=== PATIENT | male | born 1950 | race Caucasian/White ===

== ENCOUNTER → 2016-12-04 | Outpatient (CLI) | payer MEDICARE ==
[2016-12-04 10:58] LABS: Basophils # (A) 0.1 k/uL (0-0.2); Basophils % (A) 1 %; CH 31.6; CHCM 34.6; Eosinophils # (A) 0.6 k/uL (0-0.7); Eosinophils % (A) 8 %; HCT 48.2 % (39.0-53.0); HGB 16.1 gm/dL (13.0-17.5); Luc # (Auto) 0.17; Luc % (Auto) 2; Lymphocytes # (A) 1.4 k/uL (1.0-4.8); Lymphocytes % (A) 20 %; MCH 30.6 pg (25.0-35.0); MCHC 33.4 g/dL (31.0-37.0); MCV 91.7 fL (80.0-100.0); Mean Platelet Volume 7.8; Monocytes # (A) 0.6 k/uL (0-1.0); Monocytes % (A) 8 %; Neutrophils # (A) 4.4 k/uL (1.3-7.7); Neutrophils % (A) 62 %; RBC 5.25 m/uL (4.30-5.90); RDW 12.2 % (11.5-15.5); WBC 7.2 k/uL (3.8-10.6); WBC (Perox) 7.15
[2016-12-04 11:15] LABS: Hemoglobin A1C 5.4 % (4.2-6.1)
[2016-12-04 12:34] LABS: ALT 37 U/L (21-72); AST 20 U/L (17-59); Alkaline Phosphatase 67 U/L (38-126); Anion Gap 8 mmol/L; Blood Urea Nitrogen 12 mg/dL (9-20); Calcium 9.6 mg/dL (8.4-10.2); Carbon Dioxide 30 mmol/L (22-30); Chloride 103 mmol/L (98-107); Cholesterol 183 mg/dL (<200); Creatine Kinase 41 U/L (55-170); Glucose 110 mg/dL (74-99); HDL Cholesterol 44 mg/dL (40-60); Iron 97 ug/dL (49-181); Non-African American GFR(MDRD) >60 (>60 ml/min/1.73 sqM); Potassium 4.9 mmol/L (3.5-5.1); Sodium 141 mmol/L (137-145); Total Bilirubin 0.9 mg/dL (0.2-1.3); Total Protein 6.9 g/dL (6.3-8.2); Triglycerides 241 mg/dL (<150)
[2016-12-04 12:47] LABS: % Iron Saturation 29.8 % (20-50); Total Iron Binding Capacity 325 ug/dL (261-462)
== END | disposition home or self-care (01) ==
LOC: LABWHC1 10:19
PROVIDERS: ATTEND Family Medicine
DX: I10 Essential (primary) hypertension (principal); G47.62 Sleep related leg cramps; R73.02 Impaired glucose tolerance (oral); E78.5 Hyperlipidemia, unspecified
CPT/HCPCS: 36415; 80053; 80061; 82550; 83036; 83540; 83550; 83735; 84443; 85025

== ENCOUNTER → 2016-12-20 | Outpatient (CLI) | payer MEDICARE ==
--- NOTE | 2016-12-25 10:23 | P.ARTDOP ---
Arterial Doppler LOWER EXTREMITY ARTERIAL DOPPLER: DATE OF SERVICE: 12/20/2016 Reason for study: Leg spasm and pain. Doppler waveforms: Multiphasic bilaterally throughout. Pulse volume recording: Normal configuration. Pressure gradients: None. Ankle-brachial indices: Greater than 1 bilaterally. Toe pressures: [] on the right, [] on the left Impression: Normal basic study.
== END | disposition home or self-care (01) ==
LOC: RADUSWWP 09:33
PROVIDERS: ATTEND Family Medicine
DX: I73.9 Peripheral vascular disease, unspecified (principal)
CPT/HCPCS: 93923

== ENCOUNTER → 2017-05-12 | Outpatient (CLI) | payer MEDICARE ==
[2017-05-12 11:19] LABS: Basophils # (A) 0.1 k/uL (0-0.2); Basophils % (A) 1 %; CHCM 34.4; Eosinophils # (A) 0.6 k/uL (0-0.7); Eosinophils % (A) 7 %; HCT 47.6 % (39.0-53.0); HDW 2.52; HGB 16.2 gm/dL (13.0-17.5); Luc # (Auto) 0.25; Luc % (Auto) 3; Lymphocytes # (A) 1.2 k/uL (1.0-4.8); Lymphocytes % (A) 14 %; MCH 30.8 pg (25.0-35.0); MCV 90.6 fL (80.0-100.0); Mean Platelet Volume 7.6; Monocytes # (A) 0.6 k/uL (0-1.0); Monocytes % (A) 7 %; Neutrophils # (A) 6.2 k/uL (1.3-7.7); Neutrophils % (A) 70 %; RBC 5.26 m/uL (4.30-5.90); RDW 13.2 % (11.5-15.5); WBC (Perox) 8.93
[2017-05-12 12:02] LABS: ALT 45 U/L (21-72); AST 23 U/L (17-59); Alkaline Phosphatase 90 U/L (38-126); Anion Gap 10 mmol/L; Blood Urea Nitrogen 15 mg/dL (9-20); Calcium 9.8 mg/dL (8.4-10.2); Carbon Dioxide 26 mmol/L (22-30); Chloride 104 mmol/L (98-107); Cholesterol 121 mg/dL (<200); Creatine Kinase 43 U/L (55-170); Glucose 106 mg/dL (74-99); HDL Cholesterol 55 mg/dL (40-60); Magnesium 1.8 mg/dL (1.6-2.3); Non-African American GFR(MDRD) >60 (>60 ml/min/1.73 sqM); Sodium 140 mmol/L (137-145); Total Protein 6.8 g/dL (6.3-8.2); Triglycerides 118 mg/dL (<150)
[2017-05-12 12:25] LABS: Prostate Specific Antigen 1.29 ng/mL (0.00-4.00)
[2017-05-12 12:43] LABS: Vitamin B12 657 pg/mL
[2017-05-12 13:28] LABS: Hemoglobin A1C 5.5 % (4.2-6.1)
== END | disposition home or self-care (01) ==
LOC: LABWHC1 10:45
PROVIDERS: ATTEND Family Medicine
DX: E78.5 Hyperlipidemia, unspecified (principal); N40.0 Benign prostatic hyperplasia without lower urinary tract symptoms; I10 Essential (primary) hypertension; I25.10 Atherosclerotic heart disease of native coronary artery without angina pectoris; R73.02 Impaired glucose tolerance (oral)
CPT/HCPCS: 36415; 80053; 80061; 82550; 82607; 83036; 83735; 84153; 84443; 85025

== ENCOUNTER → 2018-04-10 | Outpatient (CLI) | payer MEDICARE ==
[2018-04-10 10:59] LABS: Basophils % (A) 0 %; Eosinophils # (A) 0.6 k/uL (0-0.7); Eosinophils % (A) 8 %; HCT 46.8 % (39.0-53.0); HGB 15.6 gm/dL (13.0-17.5); Lymphocytes # (A) 1.4 k/uL (1.0-4.8); Lymphocytes % (A) 18 %; MCHC 33.3 g/dL (31.0-37.0); MCV 89.9 fL (80.0-100.0); Mean Platelet Volume 6.8; Monocytes # (A) 0.6 k/uL (0-1.0); Monocytes % (A) 7 %; Neutrophils % (A) 64 %; Platelet Count 312 k/uL (150-450); RBC 5.21 m/uL (4.30-5.90); RDW 12.9 % (11.5-15.5); WBC 7.8 k/uL (3.8-10.6)
[2018-04-10 11:14] LABS: ALT 44 U/L (21-72); AST 25 U/L (17-59); Albumin 4.3 g/dL (3.5-5.0); Alkaline Phosphatase 75 U/L (38-126); Anion Gap 9 mmol/L; Blood Urea Nitrogen 20 mg/dL (9-20); Calcium 9.6 mg/dL (8.4-10.2); Carbon Dioxide 29 mmol/L (22-30); Chloride 101 mmol/L (98-107); Cholesterol 144 mg/dL (<200); Creatine Kinase 41 U/L (55-170); Glucose 106 mg/dL (74-99); HDL Cholesterol 57 mg/dL (40-60); LDL Cholesterol,Calculated 52 mg/dL (0-99); Potassium 4.9 mmol/L (3.5-5.1); Sodium 139 mmol/L (137-145); Total Bilirubin 0.7 mg/dL (0.2-1.3); Total Protein 6.5 g/dL (6.3-8.2); Triglycerides 175 mg/dL (<150); Uric Acid 8.4 mg/dL (3.5-8.5)
[2018-04-10 19:30] LABS: Hemoglobin A1C 5.4 % (4.0-6.0)
== END | disposition home or self-care (01) ==
LOC: LABWHC1 10:37
PROVIDERS: ATTEND Family Medicine
DX: E78.5 Hyperlipidemia, unspecified (principal); G89.4 Chronic pain syndrome; I10 Essential (primary) hypertension
CPT/HCPCS: 36415; 80053; 80061; 82550; 82607; 83036; 84443; 84550; 85025

== ENCOUNTER → 2018-07-16 | Outpatient (CLI) | payer MEDICARE ==
[2018-07-16 11:29] LABS: Basophils % (A) 1 %; Eosinophils # (A) 0.6 k/uL (0-0.7); Eosinophils % (A) 9 %; HGB 15.5 gm/dL (13.0-17.5); Lymphocytes # (A) 1.1 k/uL (1.0-4.8); Lymphocytes % (A) 18 %; MCH 29.5 pg (25.0-35.0); MCHC 31.7 g/dL (31.0-37.0); MCV 93.2 fL (80.0-100.0); Mean Platelet Volume 6.6; Monocytes # (A) 0.5 k/uL (0-1.0); Monocytes % (A) 8 %; Neutrophils # (A) 3.9 k/uL (1.3-7.7); Neutrophils % (A) 62 %; Platelet Count 316 k/uL (150-450); RBC 5.26 m/uL (4.30-5.90); RDW 12.6 % (11.5-15.5); WBC 6.3 k/uL (3.8-10.6)
[2018-07-16 11:58] LABS: ALT 34 U/L (21-72); AST 25 U/L (17-59); Albumin 4.2 g/dL (3.5-5.0); Alkaline Phosphatase 71 U/L (38-126); Anion Gap 9 mmol/L; Blood Urea Nitrogen 20 mg/dL (9-20); Calcium 9.8 mg/dL (8.4-10.2); Carbon Dioxide 24 mmol/L (22-30); Chloride 105 mmol/L (98-107); Cholesterol 135 mg/dL (<200); Glucose 112 mg/dL (74-99); HDL Cholesterol 54 mg/dL (40-60); LDL Cholesterol,Calculated 55 mg/dL (0-99); Potassium 4.9 mmol/L (3.5-5.1); Sodium 138 mmol/L (137-145); Total Bilirubin 0.8 mg/dL (0.2-1.3); Total Protein 6.8 g/dL (6.3-8.2); Triglycerides 132 mg/dL (<150)
[2018-07-16 20:06] LABS: Hemoglobin A1C 5.3 % (4.0-6.0)
== END | disposition home or self-care (01) ==
LOC: LABWHC1 10:19
PROVIDERS: ATTEND Family Medicine
DX: I10 Essential (primary) hypertension (principal); R73.01 Impaired fasting glucose; E78.5 Hyperlipidemia, unspecified
CPT/HCPCS: 36415; 80053; 80061; 83036; 84153; 84443; 85025

== ENCOUNTER → 2019-01-21 | Outpatient (CLI) | payer MEDICARE ==
[2019-01-21 12:11] LABS: Basophils # (A) 0.1 k/uL (0-0.2); Basophils % (A) 1 %; Eosinophils # (A) 0.5 k/uL (0-0.7); Eosinophils % (A) 10 %; HCT 45.6 % (39.0-53.0); HGB 14.6 gm/dL (13.0-17.5); Lymphocytes # (A) 0.8 k/uL (1.0-4.8); Lymphocytes % (A) 16 %; MCH 29.5 pg (25.0-35.0); MCHC 32.1 g/dL (31.0-37.0); MCV 91.8 fL (80.0-100.0); Mean Platelet Volume 7.4; Monocytes # (A) 0.4 k/uL (0-1.0); Monocytes % (A) 9 %; Neutrophils # (A) 3.1 k/uL (1.3-7.7); Neutrophils % (A) 62 %; Platelet Count 319 k/uL (150-450); RBC 4.97 m/uL (4.30-5.90); RDW 13.8 % (11.5-15.5); WBC 5.1 k/uL (3.8-10.6)
[2019-01-21 19:46] LABS: Hemoglobin A1C 5.5 % (4.0-6.0)
[2019-01-21 20:33] LABS: Albumin 4.4 g/dL (3.80-4.90); Albumin/Globulin Ratio 3.14 (1.60-3.17); Anion Gap 7.3 mmol/L (4.00-12.00); Calcium 9.4 mg/dL (8.7-10.3); Carbon Dioxide 26.7 mmol/L (21.6-31.8); Globulin 1.4 g/dL (1.6-3.3); LDL Cholesterol,Calculated 52.4 mg/dL (0.0-131.0); Potassium 5.1 mmol/L (3.5-5.5); Total Bilirubin 0.7 mg/dL (0.2-1.2); Total Protein 5.8 g/dL (6.2-8.2); Uric Acid 6.5 mg/dL (3.7-8.7); VLDL Calculation 13.6 mg/dL (5.00-40.00)
[2019-01-21 20:43] LABS: T4, Free (Free Thyroxine) 1.2 ng/dL (0.80-1.80)
== END | disposition home or self-care (01) ==
LOC: LABWHC1 10:47
PROVIDERS: ATTEND Family Medicine
DX: G89.4 Chronic pain syndrome (principal); E78.5 Hyperlipidemia, unspecified; I10 Essential (primary) hypertension
CPT/HCPCS: 36415; 80053; 80061; 83036; 84439; 84443; 84550; 85025

== ENCOUNTER → 2019-07-07 | Outpatient (CLI) | payer MEDICARE ==
[2019-07-07 15:22] LABS: Basophils # (A) 0.1 k/uL (0-0.2); Basophils % (A) 1 %; Eosinophils # (A) 0.6 k/uL (0-0.7); Eosinophils % (A) 7 %; HCT 47.7 % (39.0-53.0); HGB 15.6 gm/dL (13.0-17.5); Lymphocytes # (A) 1.1 k/uL (1.0-4.8); Lymphocytes % (A) 15 %; MCH 30.2 pg (25.0-35.0); MCHC 32.7 g/dL (31.0-37.0); MCV 92.5 fL (80.0-100.0); Mean Platelet Volume 7.3; Monocytes # (A) 0.6 k/uL (0-1.0); Monocytes % (A) 8 %; Neutrophils # (A) 5.2 k/uL (1.3-7.7); Neutrophils % (A) 68 %; Platelet Count 303 k/uL (150-450); RBC 5.15 m/uL (4.30-5.90); RDW 15.7 % (11.5-15.5); WBC 7.7 k/uL (3.8-10.6)
[2019-07-07 18:46] LABS: Vitamin D 25 Hydroxy 29.5 ng/mL (30.0-100.0)
[2019-07-07 21:43] LABS: Hemoglobin A1C 5.5 % (4.0-6.0)
[2019-07-07 22:28] LABS: African American GFR (CKD) 99.9 (60.0-200.0); Albumin 4.4 g/dL (3.80-4.90); Albumin/Globulin Ratio 2.59 (1.60-3.17); Anion Gap 13.9 mmol/L (4.00-12.00); BUN/Creat Ratio 25.56 Ratio (12.00-20.00); Calcium 9.4 mg/dL (8.7-10.3); Carbon Dioxide 22.1 mmol/L (21.6-31.8); Chol/HDL Ratio 2.85; Globulin 1.7 g/dL (1.6-3.3); LDL Cholesterol,Calculated 57.2 mg/dL (0.0-131.0); Potassium 4.9 mmol/L (3.5-5.5); Total Bilirubin 0.7 mg/dL (0.3-1.2); Total Protein 6.1 g/dL (6.2-8.2); VLDL Calculation 44.8 mg/dL (5.00-40.00)
== END | disposition home or self-care (01) ==
LOC: LABWHC1 13:41
PROVIDERS: ATTEND Nurse Practitioner Adult Health
DX: I10 Essential (primary) hypertension (principal); E78.5 Hyperlipidemia, unspecified; R73.01 Impaired fasting glucose; N40.0 Benign prostatic hyperplasia without lower urinary tract symptoms; M54.31 Sciatica, right side; R00.0 Tachycardia, unspecified
CPT/HCPCS: 36415; 80053; 80061; 82306; 82550; 82607; 83036; 84153; 84443; 84481; 85025

== ENCOUNTER 2019-08-05 19:37 | Observation (INO) | payer MEDICARE ==
[2019-08-05] MEDS ORDERED: ASPIRIN 81 MG PO STA (20:59)
--- NOTE | 2019-08-05 21:00 | ED ---
General Adult HPI - General Chief complaint: Chest Pain Stated complaint: Chest tightness,SOB Time Seen by Provider: 08/05/19 20:16 Source: patient Mode of arrival: ambulatory Limitations: no limitations - History of Present Illness Initial comments: Dictation was produced using [employer] dictation software. please excuse any grammatical, word or spelling errors. Chief Complaint: 69-year-old male past medical history coronary artery disease presents with chest pain. History of Present Illness: Patient is a 69-year-old male who has past medical history of coronary artery disease. Patient states he had crushing substernal chest pressure that radiate to his right shoulder. no diaphoresis. Did have some nausea. Patient is has history of coronary artery disease. He had a stent that was performed several years ago. Patient's last cardiac stress test was 2 years ago. Patient states that since being in the emergency department his symptoms have abated. The ROS documented in this emergency department record has been reviewed and confirmed by me. Those systems with pertinent positive or negative responses have been documented in the HPI. All other systems are other negative and/or noncontributory. PHYSICAL EXAM: General Impression: Alert and oriented x3, not in acute distress HEENT: Normocephalic atraumatic, extra-ocular movements intact, pupils equal and reactive to light bilaterally, mucous membranes moist. Cardiovascular: Heart regular rate and rhythm, S1&S2 audible, no murmurs, rubs or gallops Chest: Lungs clear to auscultation bilaterally, no rhonchi, no wheeze, no rales Abdomen: Bowel sounds present, abdomen soft, non-tender, non-distended, no organomegaly Musculoskeletal: Pulses present and equal in all extremities, no peripheral edema Motor: no focal deficits noted Neurological: CN II-XII grossly intact, no focal motor or sensory deficits noted Skin: Intact with no visualized rashes Psych: Normal affect and mood ED course: 69y Old male presents with atypical chest pain with typical features. Patient has multiple risk factors including known history of coronary artery disease number hypertension and dyslipidemia. Signs upon arrival shows heart rate of 102, rest of vital signs within acceptable limits. Patient denies any symptoms at this time. Laboratory evaluation obtained. CBC, coag panel, metabolic panel is unremarkable. Cardiac enzymes negative. Chest x-ray is nonacute. Martinez will be admitted for atypical chest pain typical features. He does have multiple risk factors. Patient will have surgery troponins ordered and cardiac consultation. Patient understandable agreeable with disposition. Discussed patient case with Dr. Carranza. EKG interpretation: Ventricular rate he 6, normal sinus rhythm, TX interval 162, care is 80, QTc 424. No TX prolongation, no QTC prolongation, no ST or T-wave changes noted. Overall, this EKG is unremarkable - Related Data Home Medications Medication Instructions Recorded Confirmed Aspirin EC [Ecotrin Low Dose] 162 mg PO DAILY 08/05/19 08/05/19 Atorvastatin [Lipitor] 10 mg PO DAILY 08/05/19 08/05/19 Cholecalciferol [Vitamin D3 (25 1,000 unit PO DAILY 08/05/19 08/05/19 Mcg = 1000 Iu)] Cyanocobalamin (Vitamin B-12) 1,000 mcg PO DAILY 08/05/19 08/05/19 [Vitamin B-12] DULoxetine HCL [Cymbalta] 60 mg PO BID 08/05/19 08/05/19 Famotidine [Pepcid] 20 mg PO BID PRN 08/05/19 08/05/19 HYDROcodone/APAP 7.5-325MG [[place] 1 tab PO TID PRN 08/05/19 08/05/19 7.5-325] Lisinopril-Hctz 20-12.5 mg 1 tab PO DAILY 08/05/19 08/05/19 [Zestoretic 20-12.5] Omeprazole 20 mg PO DAILY 08/05/19 08/05/19 Tamsulosin HCl [Flomax] 0.8 mg PO DAILY 08/05/19 08/05/19 Allergies Allergy/AdvReac Type Severity Reaction Status Date / Time aspirin Allergy Nausea Verified 08/05/19 20:21 WITH UNCOATED TABLETS ONLY Review of Systems ROS Statement: Those systems with pertinent positive or pertinent negative responses have been documented in the HPI. ROS Other: All systems not noted in ROS Statement are negative. Past Medical History Past Medical History: GERD/Reflux, Hyperlipidemia, Hypertension, Osteoarthritis (OA) Additional Past Medical History / Comment(s): "inverted T wave", arthritis, fell at work 09/02/14, hiatal hernia History of Any Multi-Drug Resistant Organisms: None Reported Past Surgical History: Appendectomy, Cholecystectomy, Heart Catheterization With Stent, Orthopedic Surgery Additional Past Surgical History / Comment(s): ORIF jame ankles, "aneurysm behind knee" Past Anesthesia/Blood Transfusion Reactions: No Reported Reaction Date of Last Stent Placement:: 2008 Past Psychological History: No Psychological Hx Reported Smoking Status: Former smoker Past Alcohol Use History: Occasional Past Drug Use History: None Reported - Past Family History Father Family Medical History: Cancer Sister(s) Family Medical History: Deep Vein Thrombosis (DVT) General Exam Limitations: no limitations Course Vital Signs 08/05/19 08/05/19 19:43 20:33 Temperature 97.7 F Pulse Rate 102 H 89 Respiratory 18 18 Rate Blood Pressure 121/77 126/75 O2 Sat by Pulse 98 98 Oximetry Medical Decision Making - Lab Data Result diagrams: 08/05/19 20:05 08/05/19 20:05 Lab Results 08/05/19 08/05/19 08/05/19 Range/Units 20:05 20:05 20:05 WBC 9.3 (3.8-10.6) k/uL RBC 4.68 (4.30-5.90) m/uL Hgb 14.4 (13.0-17.5) gm/dL Hct 42.6 (39.0-53.0) % MCV 91.2 (80.0-100.0) fL MCH 30.7 (25.0-35.0) pg MCHC 33.7 (31.0-37.0) g/dL RDW 11.9 (11.5-15.5) % Plt Count 287 (150-450) k/uL Neutrophils % 69 % Lymphocytes % 15 % Monocytes % 8 % Eosinophils % 5 % Basophils % 1 % Neutrophils # 6.4 (1.3-7.7) k/uL Lymphocytes # 1.4 (1.0-4.8) k/uL Monocytes # 0.8 (0-1.0) k/uL Eosinophils # 0.5 (0-0.7) k/uL Basophils # 0.1 (0-0.2) k/uL PT 9.9 (9.0-12.0) sec INR 0.9 (<1.2) APTT 23.3 (22.0-30.0) sec Sodium 135 L (137-145) mmol/L Potassium 4.3 (3.5-5.1) mmol/L Chloride 97 L (98-107) mmol/L Carbon Dioxide 27 (22-30) mmol/L Anion Gap 11 mmol/L BUN 21 H (9-20) mg/dL Creatinine 1.20 (0.66-1.25) mg/dL Est GFR (CKD-EPI)AfAm 71 (>60 ml/min/1.73 sqM) Est GFR (CKD-EPI)NonAf 61 (>60 ml/min/1.73 sqM) Glucose 98 (74-99) mg/dL Calcium 9.6 (8.4-10.2) mg/dL Magnesium 1.8 (1.6-2.3) mg/dL Total Bilirubin 0.5 (0.2-1.3) mg/dL AST 36 (17-59) U/L ALT 52 (21-72) U/L Alkaline Phosphatase 79 (38-126) U/L Troponin I (0.000-0.034) ng/mL Total Protein 6.7 (6.3-8.2) g/dL Albumin 4.2 (3.5-5.0) g/dL 08/05/19 Range/Units 20:05 WBC (3.8-10.6) k/uL RBC (4.30-5.90) m/uL Hgb (13.0-17.5) gm/dL Hct (39.0-53.0) % MCV (80.0-100.0) fL MCH (25.0-35.0) pg MCHC (31.0-37.0) g/dL RDW (11.5-15.5) % Plt Count (150-450) k/uL Neutrophils % % Lymphocytes % % Monocytes % % Eosinophils % % Basophils % % Neutrophils # (1.3-7.7) k/uL Lymphocytes # (1.0-4.8) k/uL Monocytes # (0-1.0) k/uL Eosinophils # (0-0.7) k/uL Basophils # (0-0.2) k/uL PT (9.0-12.0) sec INR (<1.2) APTT (22.0-30.0) sec Sodium (137-145) mmol/L Potassium (3.5-5.1) mmol/L Chloride (98-107) mmol/L Carbon Dioxide (22-30) mmol/L Anion Gap mmol/L BUN (9-20) mg/dL Creatinine (0.66-1.25) mg/dL Est GFR (CKD-EPI)AfAm (>60 ml/min/1.73 sqM) Est GFR (CKD-EPI)NonAf (>60 ml/min/1.73 sqM) Glucose (74-99) mg/dL Calcium (8.4-10.2) mg/dL Magnesium (1.6-2.3) mg/dL Total Bilirubin (0.2-1.3) mg/dL AST (17-59) U/L ALT (21-72) U/L Alkaline Phosphatase (38-126) U/L Troponin I <0.012 (0.000-0.034) ng/mL Total Protein (6.3-8.2) g/dL Albumin (3.5-5.0) g/dL Disposition Clinical Impression: Chest pain Disposition: ADMITTED IP TO THIS [facility] Condition: Fair Referrals: Ema Watkins MD [Primary Care Provider] - 1-2 days Decision Time: 22:52
--- NOTE | 2019-08-05 21:11 | XR ---
EXAMINATION TYPE: XR chest 2V DATE OF EXAM: 08/05/2019 COMPARISON: 08/19/2010 HISTORY: Chest pain TECHNIQUE: Frontal and lateral views of the chest are obtained. FINDINGS: Heart and mediastinum are normal. Lungs are clear. Diaphragm is normal. Bony thorax appear s normal. IMPRESSION: Normal chest. No change.
[2019-08-05 22:23] LABS: Basophils # (A) 0.1 k/uL (0-0.2); Basophils % (A) 1 %; Eosinophils # (A) 0.5 k/uL (0-0.7); Eosinophils % (A) 5 %; HCT 42.6 % (39.0-53.0); HGB 14.4 gm/dL (13.0-17.5); Lymphocytes # (A) 1.4 k/uL (1.0-4.8); Lymphocytes % (A) 15 %; MCH 30.7 pg (25.0-35.0); MCHC 33.7 g/dL (31.0-37.0); MCV 91.2 fL (80.0-100.0); Mean Platelet Volume 6.8; Monocytes # (A) 0.8 k/uL (0-1.0); Monocytes % (A) 8 %; Neutrophils # (A) 6.4 k/uL (1.3-7.7); Neutrophils % (A) 69 %; Platelet Count 287 k/uL (150-450); RBC 4.68 m/uL (4.30-5.90); RDW 11.9 % (11.5-15.5); WBC 9.3 k/uL (3.8-10.6)
[2019-08-05 22:30] LABS: Albumin 4.2 g/dL (3.5-5.0); Calcium 9.6 mg/dL (8.4-10.2); Magnesium 1.8 mg/dL (1.6-2.3); Potassium 4.3 mmol/L (3.5-5.1); Total Bilirubin 0.5 mg/dL (0.2-1.3); Total Protein 6.7 g/dL (6.3-8.2)
[2019-08-05 22:40] LABS: INR 0.9 (<1.2); Partial Thromboplastin Time 23.3 sec (22.0-30.0); Prothrombin Time 9.9 sec (9.0-12.0)
[2019-08-05] MEDS ORDERED: NITROGLYCERIN SL TABS 0.4 MG TAB SUBLINGUAL PRN (22:50)
[2019-08-05] MEDS ORDERED: HYDROcodone/APAP 5-325MG 1 EACH TAB PO STA (22:56)
[2019-08-05] MEDS: HYDROcodone/APAP 7.5-325MG 1 EACH TAB PO PRN (23:42)
[2019-08-06 04:16] LABS: Cholesterol 124 mg/dL (<200); HDL Cholesterol 39 mg/dL (40-60); LDL Cholesterol,Calculated 17 mg/dL (0-99); Triglycerides 340 mg/dL (<150)
[2019-08-06] MEDS ORDERED: ALPRAZolam 0.5 MG TAB PO PRN (08:32)
[2019-08-06] MEDS ORDERED: ALPRAZolam 0.25 MG TAB PO PRN (08:32)
[2019-08-06] MEDS ORDERED: ASPIRIN 325 MG TAB PO STA (08:32)
[2019-08-06] MEDS ORDERED: SODIUM CHLORIDE 0.9% 1,000 ML in EMPTY BAG 1 BAG IV ONE (08:32)
[2019-08-06] MEDS ORDERED: ATORVASTATIN 20 MG TAB PO SCH (09:00)
[2019-08-06] MEDS ORDERED: ASPIRIN 81 MG PO SCH (09:00)
[2019-08-06] MEDS ORDERED: ASPIRIN 325 MG TAB PO SCH (09:00)
[2019-08-06] MEDS: LISINOPRIL-HCTZ 20-12.5 MG 1 EACH TAB PO SCH (09:14)
[2019-08-06] MEDS ORDERED: LIDOCAINE 1% INJ 10MG/ML (20 ML MDV) ONE (09:41)
--- NOTE | 2019-08-06 09:44 | P.CRDCN ---
History of Present Illness History of present illness: This is a pleasant 69-year-old male past medical history significant for coronary artery disease in the setting of an acute myocardial infarction status post placement to the circumflex artery in 2009, dyslipidemia, hypertension, BPH, former nicotine dependence and alcohol use. He follows in the office with Dr. Cast. We've been asked to see him in consultation secondary to chest discomfort. He states yesterday while riding his motorcycle he felt a very heavy squeezing pain in the midsternal region with radiation to the right shoulder, base of the right neck and up into the right side of his head. This was associated with an acute onset of diaphoresis and shortness of breath. Symptoms persisted intermittently for the next 4 hours and seemed to be worsened by activity or exertion. He denies palpitations, nausea, vomiting or dizziness. He did suffer a trip and fall last week on Friday hitting his right shoulder and forehead on the pavement. He has a small abrasion to the right forehead. However the discomfort in the right shoulder and chest is not reproducible. He is seen and examined resting comfortably in bed in no acute distress. He denies any further symptoms of chest discomfort since arriving at the hospital. EKG reveals sinus rhythm with no acute ST or T wave abnormalities noted. Chest x-ray is negative for an acute cardiopulmonary process. Laboratory data reviewed, CBC unremarkable, d-dimer 0.27, sodium 135, potassium 4.3, creatinine 1.2 with a GFR of 61, magnesium 1.8, cardiac enzymes negative 2, LDL 17. Current cardiac medications include atorvastatin 10 mg daily, zestoretic 20/12.5 mg daily, aspirin 162 mg daily. Most recent echocardiogram obtained reveals preserved LV systolic function with EF 55%. At the time of my exam: CONSTITUTIONAL: Denies fever. Denies chills. EYES: Denies blurred vision. Denies vision changes. Denies eye pain. EARS, NOSE, MOUTH & THROAT: Denies headache. Denies sore throat. Denies ear pain. CARDIOVASCULAR: Denies chest pain. Denies shortness of breath. Denies orthopnea. Denies PND. Denies palpitations. RESPIRATORY: Denies cough. GASTROINTESTINAL: Denies abdominal pain. Denies diarrhea. Denies constipation. Denies nausea. Denies vomiting. MUSCULOSKELETAL: Denies myalgias. INTEGUMENTARY: Denies pruitis. Denies rash. NEUROLOGIC: Denies numbness. Denies tingling. Denies weakness. PSYCHIATRIC: Denies anxiety. Denies depression. ENDOCRINE: Denies fatigue. Denies weight change. Denies polydipsia. Denies polyurina. GENITOURINARY: Denies burning, hematuria or urgency with micturation. HEMATOLOGIC: Denies history of anemia. Denies bleeding. Blood pressure 117/69 heart rate 78 afebrile maintaining oxygen saturation on room air GENERAL: This is a 69-year-old male in no apparent distress at the time of my examination. HEENT: Head is atraumatic, normocephalic. Pupils are equal, round. Sclerae anicteric. Conjunctivae are clear. Mucous membranes of the mouth are moist. Neck is supple. There is no jugular venous distention. No carotid bruit is heard. LUNGS: Clear to auscultation no wheezes, rales or rhonchi. No chest wall tenderness is noted on palpation or with deep breathing. HEART: Regular rate and rhythm without murmurs, rubs or gallops. S1 and S2 heard. ABDOMEN: Soft, nontender. Bowel sounds are heard. No organomegaly noted. EXTREMITIES: No evidence of peripheral edema and no calf tenderness noted. VASCULAR: Radial and dorsalis pedis pulses palpated, no evidence of clubbing. NEUROLOGIC: Patient is awake, alert and oriented x3. ASSESSMENT Chest pain suggestive of unstable angina History of coronary artery disease status post placement to the circumflex 2010 History of myocardial infarction Hypertension Dyslipidemia Former nicotine dependence Regular alcohol use PLAN Patient had a recent echocardiogram in the office revealing preserved LV systolic function, we will repeat a limited echo to assess for wall motion abnormalities. Recommend proceeding with cardiac catheterization to assess for progression of coronary artery disease.I have discussed the risks, benefits and alternative therapies for the above-mentioned procedure and for both sedation/analgesia as well as necessary blood product administration, if indicated, as they pertain to this patient. The patient has indicated understanding and acceptance of the risks and procedures discussed. Questions have been answered appropriately and he is agreeable to move forward with the above-stated procedure. Decrease aspirin to 81 mg daily. D-dimer requested and is unremarkable. Further recommendations to follow based upon clinical course. Thank you kindly for this consultation. Nurse Practitioner note has been reviewed, I agree with a documented findings and plan of care. Patient was seen and examined. Past Medical History Past Medical History: GERD/Reflux, Hyperlipidemia, Hypertension, Osteoarthritis (OA), Prostate Disorder Additional Past Medical History / Comment(s): arthritis, hiatal hernia, BPH History of Any Multi-Drug Resistant Organisms: None Reported Past Surgical History: Appendectomy, Cholecystectomy, Heart Catheterization With Stent, Orthopedic Surgery Additional Past Surgical History / Comment(s): ORIF jame ankles, "aneurysm behind knee" Past Anesthesia/Blood Transfusion Reactions: No Reported Reaction Date of Last Stent Placement:: 2008 Past Psychological History: No Psychological Hx Reported Smoking Status: Former smoker Past Alcohol Use History: Occasional Past Drug Use History: None Reported - Past Family History Father Family Medical History: Cancer Sister(s) Family Medical History: Deep Vein Thrombosis (DVT) Medications and Allergies Home Medications Medication Instructions Recorded Confirmed Type Aspirin EC [Ecotrin Low Dose] 162 mg PO DAILY 08/05/19 08/05/19 History Atorvastatin [Lipitor] 10 mg PO DAILY 08/05/19 08/05/19 History Cholecalciferol [Vitamin D3 (25 1,000 unit PO DAILY 08/05/19 08/05/19 History Mcg = 1000 Iu)] Cyanocobalamin (Vitamin B-12) 1,000 mcg PO DAILY 08/05/19 08/05/19 History [Vitamin B-12] DULoxetine HCL [Cymbalta] 60 mg PO BID 08/05/19 08/05/19 History Famotidine [Pepcid] 20 mg PO BID PRN 08/05/19 08/05/19 History HYDROcodone/APAP 7.5-325MG [[place] 1 tab PO TID PRN 08/05/19 08/05/19 History 7.5-325] Lisinopril-Hctz 20-12.5 mg 1 tab PO DAILY 08/05/19 08/05/19 History [Zestoretic 20-12.5] Omeprazole 20 mg PO DAILY 08/05/19 08/05/19 History Tamsulosin HCl [Flomax] 0.8 mg PO DAILY 08/05/19 08/05/19 History Allergies Allergy/AdvReac Type Severity Reaction Status Date / Time aspirin Allergy Nausea Verified 08/05/19 23:44 WITH UNCOATED TABLETS ONLY Physical Exam Vitals: Vital Signs Temp Pulse Pulse Resp BP BP Pulse Ox 08/06/19 04:00 97.7 F 78 18 117/69 97 08/05/19 23:44 98 F 86 18 135/80 98 08/05/19 22:00 86 18 127/80 98 08/05/19 21:00 87 12 126/75 99 08/05/19 20:33 89 18 126/75 98 08/05/19 19:43 97.7 F 102 H 18 121/77 98 Intake and Output 08/05/19 08/06/19 08/06/19 22:59 06:59 14:59 Other: Voiding Method Toilet Weight 92.986 kg Results 08/05/19 20:05 08/05/19 20:05 Cardiac Enzymes 08/05/19 08/05/19 08/06/19 Range/Units 20:05 20:05 02:00 AST 36 (17-59) U/L Troponin I <0.012 <0.012 (0.000-0.034) ng/mL Coagulation 08/05/19 Range/Units 20:05 PT 9.9 (9.0-12.0) sec APTT 23.3 (22.0-30.0) sec Lipids 08/05/19 Range/Units 20:05 Triglycerides 340 H (<150) mg/dL Cholesterol 124 (<200) mg/dL HDL Cholesterol 39 L (40-60) mg/dL CBC 08/05/19 Range/Units 20:05 WBC 9.3 (3.8-10.6) k/uL RBC 4.68 (4.30-5.90) m/uL Hgb 14.4 (13.0-17.5) gm/dL Hct 42.6 (39.0-53.0) % Plt Count 287 (150-450) k/uL Comprehensive Metabolic Panel 08/05/19 Range/Units 20:05 Sodium 135 L (137-145) mmol/L Potassium 4.3 (3.5-5.1) mmol/L Chloride 97 L (98-107) mmol/L Carbon Dioxide 27 (22-30) mmol/L BUN 21 H (9-20) mg/dL Creatinine 1.20 (0.66-1.25) mg/dL Glucose 98 (74-99) mg/dL Calcium 9.6 (8.4-10.2) mg/dL AST 36 (17-59) U/L ALT 52 (21-72) U/L Alkaline Phosphatase 79 (38-126) U/L Total Protein 6.7 (6.3-8.2) g/dL Albumin 4.2 (3.5-5.0) g/dL Current Medications Generic Name Dose Route Start Last Admin Trade Name Freq PRN Reason Stop Dose Admin Hydrocodone Bitart/Acetaminophen 1 each 08/05/19 22:51 08/05/19 23:42 [place] 7.5-325 PO 1 each TID PRN Administration Severe Pain Aspirin 325 mg 08/06/19 09:00 Aspirin PO DAILY [facility] Atorvastatin Calcium 10 mg 08/06/19 09:00 Lipitor PO DAILY [facility] Lisinopril/HCTZ 1 each 08/06/19 09:00 Zestoretic 20-12.5 PO DAILY [facility] Nitroglycerin 0.4 mg 08/05/19 22:50 Nitrostat SUBLINGUAL Q5M PRN Chest Pain Intake and Output 08/05/19 08/06/19 08/06/19 22:59 06:59 14:59 Other: Voiding Method Toilet Weight 92.986 kg 08/05/19 20:05 08/05/19 20:05
[2019-08-06] MEDS ORDERED: IV FLUID CONTINUATION 1,000 ML IV ONE (09:50)
[2019-08-06] MEDS ORDERED: VERAPAMIL 2.5 MG/ML 2 ML AMP ONE (09:55)
[2019-08-06] MEDS ORDERED: fentaNYL (PF) 50 MCG/ML 2 ML AMP ONE (09:55)
[2019-08-06] MEDS ORDERED: MIDAZOLAM 2 MG/2 ML VIAL IV ONE (10:04)
[2019-08-06] MEDS ORDERED: fentaNYL (PF) 50 MCG/ML 2 ML AMP IV ONE (10:04)
[2019-08-06] MEDS ORDERED: LIDOCAINE 1% INJ 10MG/ML (20 ML MDV) SQ ONE (10:08)
[2019-08-06] MEDS ORDERED: HEPARIN SODIUM 1,000 UN/ML (10ML VL) ONE ×2 (10:08→11:05)
[2019-08-06] MEDS ORDERED: VERAPAMIL SYRINGE (5 MG/10 ML) INTRAARTER ONE (10:11)
[2019-08-06] MEDS ORDERED: HEPARIN SODIUM 1,000 UN/ML (10ML VL) IV ONE ×2 (10:12→11:06)
--- NOTE | 2019-08-06 10:41 | P.CARDCATH ---
Date of Procedure: 08/06/19 Preoperative Diagnosis: Unstable angina Postoperative Diagnosis: Critical lesion in the mid LAD which is eccentric and also moderate to severe disease in the distal LAD. Diffuse disease in the small distal branch of the RCA Procedure(s) Performed: Left heart catheterization without left ventriculography Description of Procedure: HISTORY: [] CONSENT:I have discussed the risks, benefits and alternative therapies for the above-mentioned procedure and for both sedation/analgesia as well as necessary blood product administration, if indicated, as they pertain to this patient. The patient has indicated understanding and acceptance of the risks and procedures discussed. [] PROCEDURE: Patient was brought to the lab in a fasting state. Patient was given some IV sedation. The right wrist is infiltrated with lidocaine and right radial artery was entered using Seldinger technique. A 6-E[place] catheter was left in place and selective coronary arteriography was performed. Patient tolerated the procedure well. Patient is found to have Conscious Sedation: Versed 1mg Fentanyl 50 g Duration 16minutes HEMODYNAMICS: The aortic pressure is 110/73. Left ventricular end-diastolic pressure is about 10-12. There was no gradient across the aortic valve SELECTIVE CORONARY ARTERIOGRAPHY: LEFT MAIN: Normal length and free of any significant focal lesions THE LEFT ANTERIOR DESCENDING CORONARY ARTERY:. This is a good caliber vessel with ectasia and diffuse plaque. There appears to be eccentric 70-80% lesion involving the LAD after the first septal branch. LAD also has about 60-70% eccentric lesion in the distal portion. THE LEFT CIRCUMFLEX AND IS CORONARY ARTERY: This is a good caliber vessel giving rise to good-sized OM branch. The circumflex coronary artery also shows diffuse ectasia and plaque without any critical lesions THE RIGHT CORONARY ARTERY: This is a good caliber vessel, again showing ectatic changes and diffuse plaque. There is a almost near total occlusion of small PDA branch LEFT VENTRICULOGRAPHY: Not performed FINAL IMPRESSION:. There appears to be critical lesion in the mid LAD and moderate disease in the distal LAD. Whole coronary system shows ectatic changes and diffuse plaque. PLAN: Dr. Kim to evaluate the lesion in the mid LAD and may proceed with stent placement. If there is any question about the severity, FFR may be done PROGNOSIS: Guarded
--- NOTE | 2019-08-06 11:01 | ECHOF ---
Referral Reason:cp MEASUREMENTS -------- HEIGHT: 175.3 cm WEIGHT: 93.0 kg BP: 117/69 RVIDd: 3.2 cm (< 3.3) IVSd: 1.3 cm (0.6 - 1.1) LVIDd: 4.1 cm (3.9 - 5.3) LVPWd: 1.2 cm (0.6 - 1.1) IVSs: 1.6 cm LVIDs: 2.7 cm LVPWs: 1.9 cm LA Diam: 3.4 cm (2.7 - 3.8) Ao Diam: 3.2 cm (2.0 - 3.7) AV Cusp: 2.1 cm (1.5 - 2.6) FINDINGS -------- Sinus rhythm. Limited Study The left ventricular size is normal. There is mild concentric left ventricular hypertrophy. Overa ll left ventricular systolic function is normal with, an EF between 60 - 65 %. The right ventricle is normal in size. The left atrial size is normal. The right atrium is normal in size. The aortic valve is trileaflet and appears structurally normal. The mitral valve is normal. The tricuspid valve appears structurally normal. There is no pulmonic regurgitation present. The aortic root size is normal. Normal inferior vena cava with normal inspiratory collapse consistent with estimated right atrial pre ssure of 5 mmHg. There is no pericardial effusion. CONCLUSIONS -------- 1. Sinus rhythm. 2. Limited Study 3. The left ventricular size is normal. 4. There is mild concentric left ventricular hypertrophy. 5. Overall left ventricular systolic function is normal with, an EF between 60 - 65 %. 6. The right ventricle is normal in size. 7. The left atrial size is normal. 8. The right atrium is normal in size. 9. The aortic valve is trileaflet and appears structurally normal. 10. The mitral valve is normal. 11. The tricuspid valve appears structurally normal. 12. There is no pulmonic regurgitation present. 13. The aortic root size is normal. 14. Normal inferior vena cava with normal inspiratory collapse consistent with estimated right atrial pressure of 5 mmHg. 15. There is no pericardial effusion. PROCUREMENT MANAGER: Beth Edgar RDCS
[2019-08-06] MEDS ORDERED: CLOPIDOGREL 75 MG TAB ONE (11:04)
[2019-08-06] MEDS ORDERED: CLOPIDOGREL 75 MG TAB PO ONE (11:08)
[2019-08-06] MEDS ORDERED: IOPAMIDOL-370 125ML BTL INJ ONE (11:18)
[2019-08-06] MEDS ORDERED: ZOLPIDEM 5 MG TAB PO PRN (11:33)
[2019-08-06] MEDS ORDERED: NITROGLYCERIN SL TABS 0.4 MG TAB SUBLINGUAL PRN (11:33)
[2019-08-06] MEDS ORDERED: MAG HYDROX/AL HYDROX/SIMETH 30 ML CUP PO PRN (11:33)
[2019-08-06] MEDS ORDERED: ATROPINE SULFATE 0.1 MG/ML 10ML SYRINGE IV PRN (11:33)
[2019-08-06] MEDS ORDERED: RX INFO: IV CONTRAST WAS GIVEN 1 EACH MISC MISCELLANE PRN (11:33)
--- NOTE | 2019-08-06 11:40 | P.PCN ---
Date of Procedure: 08/06/19 Operative Findings: PERCUTANEOUS CORONARY INTERVENTION Performing physician: Mario Currie Procedure performed: Successful stenting of the proximal left anterior descending artery using 3.5 x 23 mm Xience MELVIN with an excellent angiographic results and reduction of stenosis from 80% to 0% Indication: This is a pleasant 69-year-old gentleman with history of coronary artery disease and prior stenting of the left circumflex as well as hypertension, dyslipidemia, as well as history of smoking in the past, presented to the hospital with a chest discomfort suggestive of unstable angina. He underwent a heart catheterization by Dr. Dr. Recinos and was found to have eccentric lesion involving the proximal LAD. Because of that a PCI of the LAD was advised Approach: Right radial artery Complication: None Level of sedation: Moderate, with sedation length of 16 minutes Procedure description: Please refer to diagnosed heart catheterization was performed by Dr. Dr. Recinos earlier today. Anticoagulation was initiated using heparin and the patient was given a weight-based heparin with continuous ACT monitoring throughout the procedure. Subsequently I did engage the left main using JL4 guide. I did wire the LAD using a run through wire were the wire was positioned in the very distal LAD. Subsequently I did PTCA below-knee using 2.5 x 12 mm balloon before I deployed 3.5 x 23 mm Xience MELVIN where the stent was positioned under fluoroscopy guidance and deployed under 14 khanh for 20 seconds. The following angiogram showed an excellent angiographic results with reduction of stenosis from 80% to 0% was BRY-3 flow and without any complication Postprocedure management: #1 dual antiplatelet therapy #2 risk factors modification #3 follow-up with the patient
[2019-08-06] MEDS ORDERED: SODIUM CHLORIDE 0.9% 1,000 ML IV SCH (11:45)
--- NOTE | 2019-08-06 13:50 | P.HPIM ---
History of Present Illness H&P Date: 08/06/19 Chief Complaint: Chest pain. This is a 69-year-old male one of Dr. Watkins with a previous medical history significant for CAD post-PCI of the LCx back in 2008, hypertension and hypertensive cardio vascular disease with left ventricular hypertrophy, hyperlipidemia, benign prostatic hypertrophy, osteoarthritis, patient presented to the emergency department at [facility] yesterday with left-sided chest pain associated with shortness of breath patient stated that he has been having chest pain on and off for the past month he has been seeing Dr. Jeffery for medication adjustment he was supposed to have a stress test as an outpatient however the insurance declined stress test until 60 days have elapsed, he ended up coming to the ER for evaluation initial evaluation showed normal sinus rhythm on EKG no significant changes troponins were negative, patient was admitted to the hospital seen in consultation by cardiology underwent left heart catheterization that showed severe disease of the mid LAD and moderate disease of the distal LAD and he underwent PCI of the LAD that was unsuccessfully by Dr. Currie and then he was admitted to hospital. Review of Systems Constitutional: Denies anorexia, Denies chronic headaches, Denies lethargy, Denies weakness, Denies weight gain Eyes: denies blurred vision, denies bulging eye, denies decreased vision, denies diplopia Ears: deny: decreased hearing Ears, nose, mouth and throat: Denies dysphagia, Denies neck lump, Denies swelling in throat, Denies sore throat Cardiovascular: Reports chest pain, Reports decreased exercise tolerance, Reports dyspnea on exertion, Reports shortness of breath, Denies lightheadedness, Denies rapid heart beat, Denies syncope Respiratory: Denies congestion, Denies cough with sputum, Denies home oxygen, Denies sleep apnea, Denies snoring, Denies wheezing Gastrointestinal: Denies bloating, Denies BRBPR, Denies heartburn, Denies melena, Denies nausea, Denies vomiting Genitourinary: Reports nocturia, Denies dysuria Musculoskeletal: Denies myalgias Musculoskeletal: absent: ankle pain, ankle stiffness, ankle swelling, elbow pain, elbow stiffness, elbow swelling, foot pain, foot stiffness, foot swelling, hand pain, hand stiffness, hand swelling, hip pain, hip stiffness, hip swelling, knee pain, knee stiffness, knee swelling, shoulder pain, shoulder stiffness, shoulder swelling, wrist pain, wrist stiffness, wrist swelling Integumentary: Denies pruritus, Denies rash Neurological: Denies numbness, Denies weakness Psychiatric: Denies anxiety, Denies depression Endocrine: Denies fatigue, Denies weight change Past Medical History Past Medical History: Coronary Artery Disease (CAD), GERD/Reflux, Hyperlipidemia, Hypertension, Osteoarthritis (OA), Prostate Disorder Additional Past Medical History / Comment(s): arthritis, hiatal hernia, BPH History of Any Multi-Drug Resistant Organisms: None Reported Past Surgical History: Appendectomy, Cholecystectomy, Heart Catheterization With Stent, Orthopedic Surgery Additional Past Surgical History / Comment(s): ORIF jame ankles, "aneurysm behind knee" Past Anesthesia/Blood Transfusion Reactions: No Reported Reaction Date of Last Stent Placement:: 2008 Past Psychological History: No Psychological Hx Reported Smoking Status: Former smoker (Patient is smoke about pack every day smoked for years and quit many years ago.) Past Alcohol Use History: Occasional Past Drug Use History: None Reported - Past Family History Father Family Medical History: Cancer (Father at age of 41 from bone cancer.) Sister(s) Family Medical History: Deep Vein Thrombosis (DVT) (Patient has one sister 74-year-old history of DVT.) Mother Family Medical History: Coronary Artery Disease (CAD) (Mother at age of 94 from CAD.) Brother(s) Family Medical History: Cancer, Coronary Artery Disease (CAD) (Patient had 3 brothers one of them with CAD post PCI and the other one has hypertension.) Son(s) Family Medical History: Thyroid Disorder (Patient has one son with thyroid disease .) Daughter(s) Family Medical History: No Reported History (Patient has one daughter who major medical problems.) Medications and Allergies Home Medications Medication Instructions Recorded Confirmed Type Aspirin EC [Ecotrin Low Dose] 162 mg PO DAILY 08/05/19 08/05/19 History Atorvastatin [Lipitor] 10 mg PO DAILY 08/05/19 08/05/19 History Cholecalciferol [Vitamin D3 (25 1,000 unit PO DAILY 08/05/19 08/05/19 History Mcg = 1000 Iu)] Cyanocobalamin (Vitamin B-12) 1,000 mcg PO DAILY 08/05/19 08/05/19 History [Vitamin B-12] DULoxetine HCL [Cymbalta] 60 mg PO BID 08/05/19 08/05/19 History Famotidine [Pepcid] 20 mg PO BID PRN 08/05/19 08/05/19 History HYDROcodone/APAP 7.5-325MG [[place] 1 tab PO TID PRN 08/05/19 08/05/19 History 7.5-325] Lisinopril-Hctz 20-12.5 mg 1 tab PO DAILY 08/05/19 08/05/19 History [Zestoretic 20-12.5] Omeprazole 20 mg PO DAILY 08/05/19 08/05/19 History Tamsulosin HCl [Flomax] 0.8 mg PO DAILY 08/05/19 08/05/19 History Allergies Allergy/AdvReac Type Severity Reaction Status Date / Time aspirin Allergy Nausea Verified 08/05/19 23:44 WITH UNCOATED TABLETS ONLY Physical Exam Vitals: Vital Signs Temp Pulse Pulse Pulse Resp BP BP 08/06/19 12:00 84 18 159/82 08/06/19 11:45 81 18 129/80 08/06/19 11:38 18 149/89 08/06/19 08:00 97.8 F 74 18 120/75 08/06/19 04:00 97.7 F 78 18 117/69 08/05/19 23:44 98 F 86 18 135/80 08/05/19 22:00 86 18 127/80 08/05/19 21:00 87 12 126/75 08/05/19 20:33 89 18 126/75 08/05/19 19:43 97.7 F 102 H 18 121/77 Pulse Ox 08/06/19 12:00 97 08/06/19 11:45 98 08/06/19 11:38 97 08/06/19 08:00 98 08/06/19 04:00 97 08/05/19 23:44 98 08/05/19 22:00 98 08/05/19 21:00 99 08/05/19 20:33 98 08/05/19 19:43 98 Intake and Output 08/05/19 08/06/19 08/06/19 22:59 06:59 14:59 Intake Total 250 Balance 250 Intake: IV 250 Other: Voiding Method Toilet Toilet Weight 92.986 kg HEENT: Head is atraumatic, normocephalic, pupils were equal round reactive to light and accommodation, extraocular muscle movement were intact, right forehead with minimal abrasion significant for fall. Neck: Supple no JVP decreased carotid upstroke. Chest: Decreased breath sound at bases, few rhonchi no expiratory wheezes no chest wall tenderness, no intercostal retractions. Heart: First heart sound is depressed, second heart sounds normal, there is no gallop or murmur. Abdomen: Soft, nontender, nondistended, positive bowel sounds. Extremities: No edema no calf tenderness dorsalis pedis +1 bilaterally. Neurologic examination: Patient is awake alert and oriented 3, cranial nerves III-12 appear grossly intact, muscle power 4/5 in upper and lower extremities bilaterally. Results CBC & Chem 7: 08/05/19 20:05 08/05/19 20:05 Labs: Abnormal Lab Results - Last 24 Hours (Table) 08/05/19 08/05/19 Range/Units 20:05 20:05 Sodium 135 L (137-145) mmol/L Chloride 97 L (98-107) mmol/L BUN 21 H (9-20) mg/dL Triglycerides 340 H (<150) mg/dL HDL Cholesterol 39 L (40-60) mg/dL Thrombosis Risk Factor Assmnt - DVT/VTE Prophylaxis DVT/VTE Prophylaxis: Pharmacologic Prophylaxis ordered, Mechanical Prophylaxis ordered - Choose All That Apply Other Risk Factors: No Assessment and Plan Assessment: Assessment and plan: 1. Unstable angina due to CAD post left heart catheterization with PCI of the LAD. Continue patient on aspirin 81 mg orally once every day, Plavix 75 mg orally once every day, continue Lipitor 80 mg once every day, start the patient on metoprolol 25 mg orally twice every day. 2. History of CAD post PCI of the LCx back in 2008 and now LAD in 2019. Continue treatment as in the previous paragraph. 3. Hypertension and hypertensive cardiovascular disease. Continue patient on l isinopril 20/12.5 mg orally once every day as well as adding metoprolol 25 mg orally twice every day. 4. Hyperlipidemia. Continue Lipitor 80 mg orally once every day. 5. GERD. Continue Pepcid 20 mg orally once every day. 6. BPH. Continue Flomax 0.4 mg orally once every day. 7. Osteoarthritis. Stable. 8. Admit to inpatient. Estimate a length of stay 2 midnights. 9. Patient is full code.
[2019-08-06 15:41] VITALS: BMI 30.2
[2019-08-06] MEDS: HYDROcodone/APAP 7.5-325MG 1 EACH TAB PO PRN (16:36)
[2019-08-06] MEDS: HEPARIN SODIUM,PORCINE 5,000 UNIT/ML 1 ML VIAL SQ SCH (16:37)
[2019-08-06] MEDS: METOPROLOL TARTRATE 25 MG TAB PO SCH (21:17)
[2019-08-07] MEDS: HEPARIN SODIUM,PORCINE 5,000 UNIT/ML 1 ML VIAL SQ SCH ×2 (00:43→09:22)
[2019-08-07] MEDS: HYDROcodone/APAP 7.5-325MG 1 EACH TAB PO PRN (00:43)
[2019-08-07 03:50] VITALS: TEMP 97.8
[2019-08-07 06:16] LABS: Basophils # (A) 0.1 k/uL (0-0.2); Basophils % (A) 2 %; Eosinophils # (A) 0.5 k/uL (0-0.7); Eosinophils % (A) 7 %; HCT 41.8 % (39.0-53.0); HGB 14.1 gm/dL (13.0-17.5); Lymphocytes # (A) 1.4 k/uL (1.0-4.8); Lymphocytes % (A) 18 %; MCH 30.9 pg (25.0-35.0); MCHC 33.7 g/dL (31.0-37.0); MCV 91.7 fL (80.0-100.0); Mean Platelet Volume 6.2; Monocytes # (A) 0.6 k/uL (0-1.0); Monocytes % (A) 8 %; Neutrophils % (A) 63 %; Platelet Count 291 k/uL (150-450); RBC 4.55 m/uL (4.30-5.90)
[2019-08-07 06:31] LABS: ALT 45 U/L (21-72); AST 27 U/L (17-59); African American GFR (CKD) >90 (>60 ml/min/1.73 sqM); Albumin 3.8 g/dL (3.5-5.0); Alkaline Phosphatase 74 U/L (38-126); Anion Gap 5 mmol/L; Blood Urea Nitrogen 16 mg/dL (9-20); Calcium 9.6 mg/dL (8.4-10.2); Carbon Dioxide 28 mmol/L (22-30); Chloride 102 mmol/L (98-107); Glucose 100 mg/dL (74-99); Potassium 4.4 mmol/L (3.5-5.1); Sodium 135 mmol/L (137-145); Total Bilirubin 0.5 mg/dL (0.2-1.3); Total Protein 6.1 g/dL (6.3-8.2)
[2019-08-07] MEDS ORDERED: ASPIRIN 81 MG PO SCH (09:00)
[2019-08-07] MEDS ORDERED: CLOPIDOGREL 75 MG TAB PO SCH (09:00)
[2019-08-07] MEDS ORDERED: ATORVASTATIN 80 MG TAB PO SCH (09:00)
[2019-08-07] MEDS: METOPROLOL TARTRATE 25 MG TAB PO SCH (09:22)
[2019-08-07] MEDS: LISINOPRIL-HCTZ 20-12.5 MG 1 EACH TAB PO SCH (09:22)
[2019-08-07 09:30] VITALS: BP 118/70; PULSE 77; RESP 20
--- NOTE | 2019-08-07 10:19 | P.DS ---
Providers Date of admission: 08/05/19 22:50 Attending physician: Clyde Carranza Consults: 08/05/19 22:50 Consult Physician Urgent Consulting Provider: Nick Cast Consult Reason/Comments: chest pain Do you want consulting provider notified?: Yes 08/06/19 11:33 Consult Physician Routine Consulting Provider: [facility] Consult Reason/Comments: Post Interventional patient Do you want consulting provider notified?: Already Contacted Primary care physician: [facility] Course: This is 69 years old male with past medical history significant for coronary artery disease presents to the emergency department with new onset chest pain. Patient was taken to the cardiac catheterization where he was found to have 80% occlusion of at the LAD and felt to be the culprit for his ongoing chest pain patient received drug-eluting stent with great results evaluated by cardiology who recommended patient to be on maximized Therapy including aspirin Plavix statin and beta ben. 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 Patient was evaluated by cardiology who cleared him for discharge to be followed outpatient unscheduled appointment. Patient was discharged in stable condition Patient Condition at Discharge: Fair Plan - Discharge Summary Discharge Rx Participant: No New Discharge Prescriptions: No Action HYDROcodone/APAP 7.5-325MG [[place] 7.5-325] 1 tab PO TID PRN PRN Reason: Severe Pain Famotidine [Pepcid] 20 mg PO BID PRN PRN Reason: Heartburn Tamsulosin HCl [Flomax] 0.8 mg PO DAILY Cyanocobalamin (Vitamin B-12) [Vitamin B-12] 1,000 mcg PO DAILY Atorvastatin [Lipitor] 80 mg PO DAILY Omeprazole 20 mg PO DAILY Lisinopril-Hctz 20-12.5 mg [Zestoretic 20-12.5] 1 tab PO DAILY DULoxetine HCL [Cymbalta] 60 mg PO BID Cholecalciferol [Vitamin D3 (25 Mcg = 1000 Iu)] 1,000 unit PO DAILY Aspirin EC [Ecotrin Low Dose] 162 mg PO DAILY Metoprolol Tartrate [Lopressor] 25 mg PO BID Clopidogrel [Plavix] Clopidogrel [Plavix] 75 mg PO DAILY Discharge Medication List Aspirin EC [Ecotrin Low Dose] 162 mg PO DAILY 08/05/19 [History] Atorvastatin [Lipitor] 80 mg PO DAILY 08/05/19 [History] Cholecalciferol [Vitamin D3 (25 Mcg = 1000 Iu)] 1,000 unit PO DAILY 08/05/19 [History] Cyanocobalamin (Vitamin B-12) [Vitamin B-12] 1,000 mcg PO DAILY 08/05/19 [History] DULoxetine HCL [Cymbalta] 60 mg PO BID 08/05/19 [History] Famotidine [Pepcid] 20 mg PO BID PRN 08/05/19 [History] HYDROcodone/APAP 7.5-325MG [[place] 7.5-325] 1 tab PO TID PRN 08/05/19 [History] Lisinopril-Hctz 20-12.5 mg [Zestoretic 20-12.5] 1 tab PO DAILY 08/05/19 [History] Omeprazole 20 mg PO DAILY 08/05/19 [History] Tamsulosin HCl [Flomax] 0.8 mg PO DAILY 08/05/19 [History] Clopidogrel [Plavix] 08/07/19 [History] Clopidogrel [Plavix] 75 mg PO DAILY 08/07/19 [History] Metoprolol Tartrate [Lopressor] 25 mg PO BID 08/07/19 [History] Follow up Appointment(s)/Referral(s): Ema Watkins MD [Primary Care Provider] - 1-2 days Mario Currie MD [STAFF PHYSICIAN] - 1 Week
== END 2019-08-07 11:35 | disposition home or self-care (01) ==
LOC: EC 19:37 → 1SOBS 22:50 → 3SCARD 08-06 13:16
PROVIDERS: ADMIT Internal Medicine; ATTEND Internal Medicine
DX: I25.110 Atherosclerotic heart disease of native coronary artery with unstable angina pectoris (principal); I11.9 Hypertensive heart disease without heart failure; E78.5 Hyperlipidemia, unspecified; M19.90 Unspecified osteoarthritis, unspecified site; K21.9 Gastro-esophageal reflux disease without esophagitis; K44.9 Diaphragmatic hernia without obstruction or gangrene; N40.0 Benign prostatic hyperplasia without lower urinary tract symptoms; S00.81XA Abrasion of other part of head, initial encounter; M25.511 Pain in right shoulder; W01.0XXA Fall on same level from slipping, tripping and stumbling without subsequent striking against object, initial encounter; Z72.89 Other problems related to lifestyle; Z79.82 Long term (current) use of aspirin; Z79.02 Long term (current) use of antithrombotics/antiplatelets; Z79.899 Other long term (current) drug therapy; Z88.6 Allergy status to analgesic agent; Z90.49 Acquired absence of other specified parts of digestive tract; Z87.891 Personal history of nicotine dependence; I25.2 Old myocardial infarction; Z95.5 Presence of coronary angioplasty implant and graft; Z82.49 Family history of ischemic heart disease and other diseases of the circulatory system; Z80.8 Family history of malignant neoplasm of other organs or systems; Z83.49 Family history of other endocrine, nutritional and metabolic diseases
CPT/HCPCS: 99152; 96361 ×3; 96360; 99285; 36415; 93005; 93308; 93458; 85379; 80061; 80053 ×2; 83735; 84484 ×2; 85025 ×2; 85610; 85730; 71046; G0378 ×4; C9600; C1887; C1725; C1769 ×2; C1874; C1894; J2250; J1644 ×2; J2001; J3010; Q9967

== ENCOUNTER → 2020-04-03 | Outpatient (CLI) | payer MEDICARE ==
[2020-04-03 12:06] LABS: Basophils % (A) 1 %; Eosinophils # (A) 0.3 k/uL (0-0.7); Eosinophils % (A) 6 %; HCT 43.7 % (39.0-53.0); HGB 14.7 gm/dL (13.0-17.5); Lymphocytes % (A) 18 %; MCH 31.8 pg (25.0-35.0); MCHC 33.7 g/dL (31.0-37.0); MCV 94.3 fL (80.0-100.0); Mean Platelet Volume 7.2; Monocytes # (A) 0.5 k/uL (0-1.0); Monocytes % (A) 9 %; Neutrophils # (A) 3.6 k/uL (1.3-7.7); Neutrophils % (A) 65 %; Platelet Count 338 k/uL (150-450); RBC 4.63 m/uL (4.30-5.90); RDW 12.4 % (11.5-15.5); WBC 5.6 k/uL (3.8-10.6)
[2020-04-03 18:37] LABS: African American GFR (CKD) 99.2 (60.0-200.0); Albumin 4.2 g/dL (3.80-4.90); Albumin/Globulin Ratio 2.21 (1.60-3.17); Anion Gap 5.9 mmol/L (4.00-12.00); BUN/Creat Ratio 17.78 Ratio (12.00-20.00); Calcium 9.2 mg/dL (8.7-10.3); Carbon Dioxide 31.1 mmol/L (21.6-31.8); Globulin 1.9 g/dL (1.6-3.3); LDL Cholesterol,Calculated 90.6 mg/dL (0.0-131.0); Magnesium 1.9 mg/dL (1.5-2.4); Non-African American GFR(CKD) 85.6 (60.0-200.0); Potassium 4.9 mmol/L (3.5-5.5); Total Bilirubin 0.6 mg/dL (0.3-1.2); Total Protein 6.1 g/dL (6.2-8.2); VLDL Calculation 56.4 mg/dL (5.00-40.00)
== END | disposition home or self-care (01) ==
LOC: LABWHC1 10:55
PROVIDERS: ATTEND Family Medicine
DX: I10 Essential (primary) hypertension (principal); E78.5 Hyperlipidemia, unspecified; G89.4 Chronic pain syndrome
CPT/HCPCS: 36415; 80053; 80061; 83735; 84443; 85025

== ENCOUNTER → 2020-06-23 | Outpatient (CLI) | payer MEDICARE ==
[2020-06-23 12:38] LABS: Basophils # (A) 0.1 k/uL (0-0.2); Basophils % (A) 1 %; Eosinophils # (A) 0.6 k/uL (0-0.7); Eosinophils % (A) 9 %; HCT 46.5 % (39.0-53.0); HGB 15.2 gm/dL (13.0-17.5); Lymphocytes % (A) 15 %; MCHC 32.7 g/dL (31.0-37.0); MCV 91.7 fL (80.0-100.0); Mean Platelet Volume 7.6; Monocytes # (A) 0.5 k/uL (0-1.0); Monocytes % (A) 8 %; Neutrophils % (A) 64 %; Platelet Count 301 k/uL (150-450); RBC 5.06 m/uL (4.30-5.90); RDW 12.7 % (11.5-15.5); WBC 6.2 k/uL (3.8-10.6)
[2020-06-23 20:30] LABS: Hemoglobin A1C 5.9 % (4.0-6.0)
[2020-06-23 21:58] LABS: T4, Free (Free Thyroxine) 1.2 ng/dL (0.80-1.80)
[2020-06-23 22:17] LABS: % Iron Saturation 22.58 (15.00-50.00); African American GFR (CKD) 99.2 (60.0-200.0); Albumin 4.4 g/dL (3.80-4.90); Albumin/Globulin Ratio 2.93 (1.60-3.17); Anion Gap 9.8 mmol/L (4.00-12.00); BUN/Creat Ratio 15.56 Ratio (12.00-20.00); Calcium 9.4 mg/dL (8.7-10.3); Carbon Dioxide 25.2 mmol/L (21.6-31.8); Chol/HDL Ratio 3.88; Globulin 1.5 g/dL (1.6-3.3); LDL Cholesterol,Calculated 62.8 mg/dL (0.0-131.0); Magnesium 1.9 mg/dL (1.5-2.4); Non-African American GFR(CKD) 85.6 (60.0-200.0); Potassium 4.6 mmol/L (3.5-5.5); Total Bilirubin 0.8 mg/dL (0.2-1.2); Total Protein 5.9 g/dL (6.2-8.2); VLDL Calculation 52.2 mg/dL (5.00-40.00)
== END | disposition home or self-care (01) ==
LOC: LABWHC1 11:35
PROVIDERS: ATTEND Family Medicine
DX: E78.5 Hyperlipidemia, unspecified (principal); I10 Essential (primary) hypertension; R25.2 Cramp and spasm; E53.8 Deficiency of other specified B group vitamins; G89.4 Chronic pain syndrome; D50.9 Iron deficiency anemia, unspecified; E11.9 Type 2 diabetes mellitus without complications
CPT/HCPCS: 36415; 80053; 80061; 82550; 82607; 83036; 83540; 83550; 83735; 84439; 84443; 85025

== ENCOUNTER → 2020-10-02 | Outpatient (CLI) | payer MEDICARE ==
[2020-10-02 13:37] LABS: Basophils % (A) 1 %; Eosinophils # (A) 0.4 k/uL (0-0.7); Eosinophils % (A) 8 %; HCT 45.6 % (39.0-53.0); HGB 15.1 gm/dL (13.0-17.5); Lymphocytes # (A) 1.1 k/uL (1.0-4.8); Lymphocytes % (A) 24 %; MCH 30.4 pg (25.0-35.0); MCHC 33.1 g/dL (31.0-37.0); MCV 92.1 fL (80.0-100.0); Mean Platelet Volume 7.7; Monocytes # (A) 0.5 k/uL (0-1.0); Monocytes % (A) 11 %; Neutrophils # (A) 2.4 k/uL (1.3-7.7); Neutrophils % (A) 53 %; Platelet Count 292 k/uL (150-450); RBC 4.95 m/uL (4.30-5.90); RDW 12.6 % (11.5-15.5); WBC 4.6 k/uL (3.8-10.6)
[2020-10-02 19:11] LABS: African American GFR (CKD) 77.9 (60.0-200.0); Albumin 4.3 g/dL (3.80-4.90); Albumin/Globulin Ratio 2.53 (1.60-3.17); Anion Gap 5.4 mmol/L (4.00-12.00); BUN/Creat Ratio 13.64 Ratio (12.00-20.00); Calcium 9.5 mg/dL (8.7-10.3); Carbon Dioxide 28.6 mmol/L (21.6-31.8); Chol/HDL Ratio 3.97; Globulin 1.7 g/dL (1.6-3.3); LDL Cholesterol,Calculated 85.8 mg/dL (0.0-131.0); Non-African American GFR(CKD) 67.2 (60.0-200.0); Potassium 5.2 mmol/L (3.5-5.5); Total Bilirubin 0.7 mg/dL (0.2-1.2); VLDL Calculation 30.2 mg/dL (5.00-40.00)
== END | disposition home or self-care (01) ==
LOC: LABWHC1 11:54
PROVIDERS: ATTEND Family Medicine
DX: I10 Essential (primary) hypertension (principal); E78.5 Hyperlipidemia, unspecified; I25.119 Atherosclerotic heart disease of native coronary artery with unspecified angina pectoris
CPT/HCPCS: 36415; 80053; 80061; 82550; 84443; 85025

== ENCOUNTER → 2021-02-13 | Outpatient (CLI) | payer MEDICARE ==
[2021-02-13 20:02] LABS: Basophils # (A) 0.02 X 10*3/uL (0.00-0.10); Basophils % (A) 0.2 %; Eosinophils # (A) 0.03 X 10*3/uL (0.04-0.35); Eosinophils % (A) 0.3 %; HCT 44.3 % (39.6-50.0); HGB 14.9 g/dL (13.0-17.0); Lymphocytes # (A) 1.15 X 10*3/uL (0.90-5.00); Lymphocytes % (A) 10.1 %; MCH 30.5 pg (27.0-32.0); MCHC 33.6 g/dL (32.0-37.0); MCV 90.8 fL (80.0-97.0); Mean Platelet Volume 10.2 fL (9.5-12.2); Monocytes # (A) 1.06 X 10*3/uL (0.20-1.00); Monocytes % (A) 9.3 %; Neutrophils # (A) 9.03 X 10*3/uL (1.80-7.70); Neutrophils % (A) 79.7 %; Platelet Count 358 X 10*3/uL (140-440); RBC 4.88 X 10*6/uL (4.40-5.60); RDW 12.8 % (11.5-14.5); WBC 11.34 X 10*3/uL (4.50-10.00)
[2021-02-13 21:42] LABS: Erythrocyte Sedimentation Rate 2 mm/Hr (0-20)
[2021-02-13 23:27] LABS: Hemoglobin A1C 5.6 % (4.0-6.0)
[2021-02-14 05:34] LABS: African American GFR (CKD) 99.2 (60.0-200.0); Albumin 4.3 g/dL (3.80-4.90); Albumin/Globulin Ratio 2.53 (1.60-3.17); Anion Gap 13.4 mmol/L (4.00-12.00); BUN/Creat Ratio 32.22 Ratio (12.00-20.00); Calcium 9.4 mg/dL (8.7-10.3); Carbon Dioxide 25.6 mmol/L (21.6-31.8); Chol/HDL Ratio 2.37; Globulin 1.7 g/dL (1.6-3.3); Non-African American GFR(CKD) 85.6 (60.0-200.0); Potassium 5.1 mmol/L (3.5-5.5); Total Bilirubin 0.7 mg/dL (0.2-1.2); Uric Acid 7.2 mg/dL (3.7-8.7)
[2021-02-14 05:41] LABS: T4, Free (Free Thyroxine) 1.2 ng/dL (0.80-1.80)
[2021-02-14 05:42] LABS: Prostate Specific Antigen 0.8 ng/mL (0.0-6.5)
== END | disposition home or self-care (01) ==
LOC: LABWHC1 10:15
PROVIDERS: ATTEND Family Medicine
DX: E78.2 Mixed hyperlipidemia (principal); G89.4 Chronic pain syndrome; I10 Essential (primary) hypertension; R73.03 Prediabetes
CPT/HCPCS: 36415; 80053; 80061; 82306; 82550; 82607; 83036; 84153; 84439; 84443; 84550; 85025; 85652

== ENCOUNTER → 2021-07-26 | Outpatient (CLI) | payer MEDICARE ==
[2021-07-26 13:06] LABS: Appearance,Urine Clear (Clear); Bilirubin,Urine Negative (Negative); Blood,Urine Negative (Negative); Color,Urine Light Yellow; Glucose,Urine (UA) Negative (Negative); Ketones,Urine Negative (Negative); Leukocyte Esterase,Urine Negative (Negative); Nitrite,Urine Negative (Negative); Protein,Urine Negative (Negative); Specific Gravity,Urine 1.016 (1.001-1.035); Urobilinogen,Urine <2.0 mg/dL (<2.0)
[2021-07-26 17:31] LABS: Basophils # (A) 0.06 X 10*3/uL (0.00-0.10); Basophils % (A) 0.9 %; Eosinophils # (A) 0.48 X 10*3/uL (0.04-0.35); Eosinophils % (A) 7.4 %; HCT 46.2 % (39.6-50.0); HGB 15.1 g/dL (13.0-17.0); Lymphocytes % (A) 18.4 %; MCH 30.4 pg (27.0-32.0); MCHC 32.7 g/dL (32.0-37.0); Mean Platelet Volume 9.9 fL (9.5-12.2); Monocytes # (A) 0.89 X 10*3/uL (0.20-1.00); Monocytes % (A) 13.7 %; Neutrophils # (A) 3.85 X 10*3/uL (1.80-7.70); Platelet Count 296 X 10*3/uL (140-440); RBC 4.97 X 10*6/uL (4.40-5.60); RDW 12.7 % (11.5-14.5); WBC 6.52 X 10*3/uL (4.50-10.00)
[2021-07-26 18:41] LABS: Erythrocyte Sedimentation Rate 2 mm/Hr (0-20)
[2021-07-26 21:14] LABS: % Iron Saturation 18.88 (15.00-50.00); ALT 32 U/L (10-49); AST 18 U/L (14-35); African American GFR (CKD) 99.7 (60.0-200.0); Albumin 4.3 g/dL (3.8-4.9); Albumin/Globulin Ratio 2.28 (1.60-3.17); Alkaline Phosphatase 94 U/L (41-126); BUN/Creat Ratio 22.65 Ratio (12.00-20.00); Blood Urea Nitrogen 19.8 mg/dL (9.0-27.0); Calcium 9.3 mg/dL (8.7-10.3); Carbon Dioxide 19.6 mmol/L (21.6-31.8); Chloride 104 mmol/L (96-109); Chol/HDL Ratio 3.46 Ratio; Creatine Kinase 46 U/L (35-257); Globulin 1.9 g/dL (1.6-3.3); Glucose 114 mg/dL (70-110); Iron 63 ug/dL (65-175); LDL Cholesterol,Calculated 108.3 mg/dL (0.0-131.0); Non-African American GFR(CKD) 86.1 (60.0-200.0); Potassium 4.8 mmol/L (3.5-5.5); Sodium 139 mmol/L (135-145); Total Iron Binding Capacity 333 ug/dL (228-460); Total Protein 6.2 g/dL (6.2-8.2); Uric Acid 7.3 mg/dL (3.7-8.7)
[2021-07-26 21:39] LABS: C Reactive Protein <0.30 mg/dL (0.00-0.80)
== END | disposition home or self-care (01) ==
LOC: LABWHC1 09:55
PROVIDERS: ATTEND Family Medicine
DX: Z00.00 Encounter for general adult medical examination without abnormal findings (principal); I25.119 Atherosclerotic heart disease of native coronary artery with unspecified angina pectoris; E78.2 Mixed hyperlipidemia; G89.4 Chronic pain syndrome; G47.62 Sleep related leg cramps
CPT/HCPCS: 36415; 80053; 80061; 81003; 82550; 83036; 83540; 83550; 83735; 84153; 84439; 84443; 84550; 85025; 85652; 86140

== ENCOUNTER → 2022-04-05 | Outpatient (CLI) | payer MEDICARE ==
[2022-04-05 14:26] LABS: Basophils # (A) 0.04 X 10*3/uL (0.00-0.10); Basophils % (A) 0.7 %; Eosinophils # (A) 0.59 X 10*3/uL (0.04-0.35); Eosinophils % (A) 10.5 %; HCT 46.8 % (39.6-50.0); HGB 15.1 g/dL (13.0-17.0); Immature Grans, Automated 0.4 %; Lymphocytes # (A) 0.98 X 10*3/uL (0.90-5.00); Lymphocytes % (A) 17.4 %; MCH 29.4 pg (27.0-32.0); MCHC 32.3 g/dL (32.0-37.0); MCV 91.1 fL (80.0-97.0); Mean Platelet Volume 9.8 fL (9.5-12.2); Monocytes # (A) 0.66 X 10*3/uL (0.20-1.00); Monocytes % (A) 11.7 %; NRBC Per 100 WBC 0 /100 WBCS (0.0-0.0); Neutrophils # (A) 3.33 X 10*3/uL (1.80-7.70); Neutrophils % (A) 59.3 %; Platelet Count 320 X 10*3/uL (140-440); RBC 5.14 X 10*6/uL (4.40-5.60); RDW 12.3 % (11.5-14.5); WBC 5.62 X 10*3/uL (4.50-10.00)
[2022-04-05 18:07] LABS: % Iron Saturation 33.77 (15.00-50.00); ALT 28 U/L (10-49); AST 18 U/L (14-35); African American GFR (CKD) 97.9 (60.0-200.0); Albumin 4.3 g/dL (3.8-4.9); Albumin/Globulin Ratio 2.26 (1.60-3.17); Alkaline Phosphatase 104 U/L (41-126); BUN/Creat Ratio 20.89 Ratio (12.00-20.00); Blood Urea Nitrogen 18.8 mg/dL (9.0-27.0); Carbon Dioxide 23.8 mmol/L (20.0-27.5); Chloride 105 mmol/L (96-109); Chol/HDL Ratio 3.77 Ratio; Creatine Kinase 52 U/L (35-257); Globulin 1.9 g/dL (1.6-3.3); Glucose 115 mg/dL (70-110); Iron 113 ug/dL (65-175); LDL Cholesterol,Calculated 83.1 mg/dL (0.0-131.0); Non-African American GFR(CKD) 84.4 (60.0-200.0); Potassium 4.8 mmol/L (3.5-5.5); Sodium 139 mmol/L (135-145); Total Iron Binding Capacity 335 ug/dL (228-460); Total Protein 6.2 g/dL (6.2-8.2)
== END | disposition home or self-care (01) ==
LOC: LABWHC1 11:15
PROVIDERS: ATTEND Internal Medicine Clinical Cardiac Electrophysiology
DX: I10 Essential (primary) hypertension (principal); I25.10 Atherosclerotic heart disease of native coronary artery without angina pectoris; E78.5 Hyperlipidemia, unspecified; G47.62 Sleep related leg cramps; G89.4 Chronic pain syndrome
CPT/HCPCS: 36415; 80053; 80061; 82550; 83540; 83550; 83735; 84443; 85025

== ENCOUNTER → 2022-07-08 | Outpatient (CLI) | payer MEDICARE ==
[2022-07-08 19:16] LABS: Basophils # (A) 0.04 X 10*3/uL (0.00-0.10); Basophils % (A) 0.6 %; Eosinophils # (A) 0.53 X 10*3/uL (0.04-0.35); Eosinophils % (A) 8.5 %; HCT 43.9 % (39.6-50.0); HGB 14.8 g/dL (13.0-17.0); Immature Grans, Automated 0.3 %; Lymphocytes # (A) 1.06 X 10*3/uL (0.90-5.00); Lymphocytes % (A) 16.9 %; MCH 30.6 pg (27.0-32.0); MCHC 33.7 g/dL (32.0-37.0); MCV 90.7 fL (80.0-97.0); Mean Platelet Volume 9.8 fL (9.5-12.2); Monocytes # (A) 0.81 X 10*3/uL (0.20-1.00); Monocytes % (A) 12.9 %; NRBC Per 100 WBC 0 /100 WBCS (0.0-0.0); Neutrophils % (A) 60.8 %; Platelet Count 334 X 10*3/uL (140-440); RBC 4.84 X 10*6/uL (4.40-5.60); RDW 12.5 % (11.5-14.5); WBC 6.26 X 10*3/uL (4.50-10.00)
[2022-07-08 21:29] LABS: ALT 28 U/L (10-49); AST 20 U/L (14-35); African American GFR (CKD) 92.5 (60.0-200.0); Albumin 4.4 g/dL (3.8-4.9); Albumin/Globulin Ratio 2.26 (1.60-3.17); Alkaline Phosphatase 93 U/L (41-126); BUN/Creat Ratio 19.62 Ratio (12.00-20.00); Blood Urea Nitrogen 18.5 mg/dL (9.0-27.0); Calcium 9.4 mg/dL (8.7-10.3); Carbon Dioxide 24.1 mmol/L (20.0-27.5); Chloride 102 mmol/L (96-109); Chol/HDL Ratio 3.98 Ratio; Creatine Kinase 46 U/L (35-257); Glucose 118 mg/dL (70-110); LDL Cholesterol,Calculated 109.4 mg/dL (0.0-131.0); Non-African American GFR(CKD) 79.8 (60.0-200.0); Potassium 4.8 mmol/L (3.5-5.5); Sodium 140 mmol/L (135-145); Total Protein 6.4 g/dL (6.2-8.2); Uric Acid 7.3 mg/dL (3.7-8.7)
== END | disposition home or self-care (01) ==
LOC: LABWHC1 11:23
PROVIDERS: ATTEND Family Medicine
DX: I10 Essential (primary) hypertension (principal); E78.2 Mixed hyperlipidemia; E55.9 Vitamin D deficiency, unspecified; G89.4 Chronic pain syndrome; N40.0 Benign prostatic hyperplasia without lower urinary tract symptoms; R73.02 Impaired glucose tolerance (oral)
CPT/HCPCS: 36415; 80053; 80061; 82306; 82550; 82607; 83036; 83735; 84153; 84443; 84550; 85025

== ENCOUNTER → 2024-04-28 | Outpatient (CLI) | payer MEDICARE ==
[2024-04-28 15:34] LABS: Basophils # (A) 0.04 X 10*3/uL (0.00-0.10); Basophils % (A) 0.6 %; Eosinophils # (A) 0.48 X 10*3/uL (0.04-0.35); Eosinophils % (A) 7.2 %; HCT 45.4 % (39.6-50.0); HGB 15.3 g/dL (13.0-17.0); Lymphocytes # (A) 1.24 X 10*3/uL (0.90-5.00); Lymphocytes % (A) 18.7 %; MCHC 33.7 g/dL (32.0-37.0); MCV 91.9 FL (80.0-97.0); Monocytes # (A) 0.77 X 10*3/uL (0.20-1.00); Monocytes % (A) 11.6 %; NRBC Per 100 WBC 0 X 10*3/uL (0.00-0.01); Neutrophils # (A) 4.08 X 10*3/uL (1.80-7.70); Neutrophils % (A) 61.4 %; Platelet Count 318 X 10*3/uL (140-440); RBC 4.94 X 10*6/uL (4.40-5.60); RDW 12.5 % (11.5-14.5); WBC 6.64 X 10*3/uL (4.50-10.00)
[2024-04-28 16:16] LABS: % Iron Saturation 33.71 (15.00-50.00); ALT 34 U/L (10-49); AST 24 U/L (14-35); Albumin 4.3 g/dL (3.8-4.9); Albumin/Globulin Ratio 2.53 Ratio (1.60-3.17); Alkaline Phosphatase 96 U/L (41-126); BUN/Creat Ratio 16.67 Ratio (12.00-20.00); Calcium 9.2 mg/dL (8.7-10.3); Carbon Dioxide 23.8 mmol/L (21.6-31.8); Chloride 104 mmol/L (96-109); Chol/HDL Ratio 1.83 Ratio; Creatine Kinase 51 U/L (35-257); Globulin 1.7 g/dL (1.6-3.3); Glucose 122 mg/dL (70-110); Iron 119 UG/DL (65-175); LDL Cholesterol,Calculated 8.8 mg/dL (0.0-131.0); Magnesium 1.8 mg/dL (1.5-2.4); Potassium 4.5 mmol/L (3.5-5.5); Sodium 140 mmol/L (135-145); Total Iron Binding Capacity 353 UG/DL (228-460)
== END | disposition home or self-care (01) ==
LOC: LABWHC1 09:42
PROVIDERS: ATTEND Family Medicine
DX: Z12.5 Encounter for screening for malignant neoplasm of prostate (principal); M17.12 Unilateral primary osteoarthritis, left knee; N40.0 Benign prostatic hyperplasia without lower urinary tract symptoms; E78.2 Mixed hyperlipidemia; G47.62 Sleep related leg cramps; G89.4 Chronic pain syndrome; D51.9 Vitamin B12 deficiency anemia, unspecified; R73.02 Impaired glucose tolerance (oral)
CPT/HCPCS: 80061; 80053; 82607; 82550; 83540; 83550; 83735; 84443; 84550; 85025; 83036; 36415; G0103

== ENCOUNTER 2024-06-16 19:17 | Emergency (ER) | payer MEDICARE ==
[2024-06-16 19:43] LABS: Basophils % (A) 0 %; Eosinophils # (A) 0.3 k/uL (0-0.7); Eosinophils % (A) 5 %; HCT 41.1 % (39.0-53.0); HGB 13.9 gm/dL (13.0-17.5); Lymphocytes # (A) 1.4 k/uL (1.0-4.8); Lymphocytes % (A) 23 %; MCH 31.6 pg (25.0-35.0); MCHC 33.9 g/dL (31.0-37.0); MCV 93.2 fL (80.0-100.0); Mean Platelet Volume 7.1; Monocytes # (A) 0.5 k/uL (0-1.0); Monocytes % (A) 8 %; Neutrophils # (A) 3.7 k/uL (1.3-7.7); Neutrophils % (A) 60 %; Platelet Count 309 k/uL (150-450); RBC 4.41 m/uL (4.30-5.90); RDW 12.5 % (11.5-15.5); WBC 6.1 k/uL (3.8-10.6)
[2024-06-16] MEDS: TRANEXAMIC 1,000 MG/100ML-NACL 1,000 MG in SALINE 1 100ML.BAG IV STA (19:47)
[2024-06-16] MEDS: fentaNYL (PF) 50 MCG/ML 2 ML AMP IVP STA ×2 (19:48→20:33)
[2024-06-16] MEDS: DIPH,PERTUS(ACELL)TETVAC-LF 0.5 ML VIAL IM ONE (19:49)
[2024-06-16 19:53] LABS: ALT 36 U/L (4-49); AST 43 U/L (17-59); African American GFR (CKD) 88 (>60 ml/min/1.73 sqM); Albumin 3.7 g/dL (3.5-5.0); Alcohol <10 mg/dL; Alkaline Phosphatase 106 U/L (38-126); Anion Gap 6 mmol/L; Blood Urea Nitrogen 17 mg/dL (9-20); Calcium 8.7 mg/dL (8.4-10.2); Carbon Dioxide 24 mmol/L (22-30); Chloride 106 mmol/L (98-107); Glucose 124 mg/dL (74-99); Non-African American GFR(CKD) 76 (>60 ml/min/1.73 sqM); Potassium 4.5 mmol/L (3.5-5.1); Sodium 136 mmol/L (137-145); Total Bilirubin 0.8 mg/dL (0.2-1.3); Total Protein 5.8 g/dL (6.3-8.2)
[2024-06-16 20:03] LABS: Prothrombin Time 10.6 sec (10.0-12.5)
--- NOTE | 2024-06-16 20:06 | ED ---
Trauma HPI - General Chief Complaint: Trauma Stated Complaint: Skull fracture, right shoulder injury Time Seen by Provider: 06/16/24 19:17 Source: patient, EMS Mode of arrival: EMS Limitations: no limitations - History of Present Illness Initial Comments: 74-year-old male presents to the emergency room for trauma. Patient was at home working on his boat in the driveway. Patient fell backwards, fell from a height of approximately 5 to 6 feet and hit his head on the cement. Granddaughter was alerted to the patient because her dog started barking. She went outside and found him on the ground. He was conscious at that point but was not answering questions appropriately. EMS was called to the scene and found him to have right occipital hematoma with possible skull fracture. Patient also had blood coming from his right ear. He was able to answer questions more appropriately en route to the hospital. He takes Plavix for history of stent. Patient was complaining of right shoulder pain with positive crepitance. Vitals are stable. Patient arrives with a GCS of 14. He is distracted by his right shoulder injury. He denies any shortness of breath. No pelvic pain. No pain in his lower extremities. - Related Data Home Medications Medication Instructions Recorded Confirmed Aspirin EC [Ecotrin Low Dose] 162 mg PO DAILY 08/05/19 08/05/19 Atorvastatin [Lipitor] 80 mg PO DAILY 08/05/19 08/07/19 Cholecalciferol [Vitamin D3 (25 1,000 unit PO DAILY 08/05/19 08/05/19 Mcg = 1000 Iu)] Cyanocobalamin (Vitamin B-12) 1,000 mcg PO DAILY 08/05/19 08/05/19 [Vitamin B-12] DULoxetine HCL [Cymbalta] 60 mg PO BID 08/05/19 08/05/19 Famotidine [Pepcid] 20 mg PO BID PRN 08/05/19 08/05/19 HYDROcodone/APAP 7.5-325MG [[place] 1 tab PO TID PRN 08/05/19 08/05/19 7.5-325] Lisinopril-Hctz 20-12.5 mg 1 tab PO DAILY 08/05/19 08/05/19 [Zestoretic 20-12.5] Omeprazole 20 mg PO DAILY 08/05/19 08/05/19 Tamsulosin HCl [Flomax] 0.8 mg PO DAILY 08/05/19 08/05/19 Clopidogrel [Plavix] 08/07/19 Clopidogrel [Plavix] 75 mg PO DAILY 08/07/19 08/07/19 Metoprolol Tartrate [Lopressor] 25 mg PO BID 08/07/19 08/07/19 Previous Rx's Medication Instructions Recorded Atorvastatin [Lipitor] 80 mg PO DAILY 30 Days #30 tab 08/07/19 Clopidogrel [Plavix] 75 mg PO DAILY 30 Days #30 tablet 08/07/19 Metoprolol Tartrate [Lopressor] 25 mg PO BID 30 Days #60 tablet 08/07/19 Allergies Allergy/AdvReac Type Severity Reaction Status Date / Time aspirin Allergy Nausea Verified 06/16/24 19:32 WITH UNCOATED TABLETS ONLY Review of Systems ROS Statement: Those systems with pertinent positive or pertinent negative responses have been documented in the HPI. ROS Other: All systems not noted in ROS Statement are negative. Past Medical History Past Medical History: Coronary Artery Disease (CAD), GERD/Reflux, Hyperlipidemia, Hypertension, Osteoarthritis (OA), Prostate Disorder Additional Past Medical History / Comment(s): arthritis, hiatal hernia, BPH History of Any Multi-Drug Resistant Organisms: None Reported Past Surgical History: Appendectomy, Cholecystectomy, Heart Catheterization With Stent, Orthopedic Surgery Additional Past Surgical History / Comment(s): ORIF jame ankles, "aneurysm behind knee" Past Anesthesia/Blood Transfusion Reactions: No Reported Reaction Date of Last Stent Placement:: 2008 Past Psychological History: No Psychological Hx Reported Past Alcohol Use History: Occasional Past Drug Use History: None Reported - Past Family History Mother Family Medical History: Coronary Artery Disease (CAD) (Mother at age of 94 from CAD.) Brother(s) Family Medical History: Cancer, Coronary Artery Disease (CAD) (Patient had 3 brothers one of them with CAD post PCI and the other one has hypertension.) Son(s) Family Medical History: Thyroid Disorder (Patient has one son with thyroid disease .) Daughter(s) Family Medical History: No Reported History (Patient has one daughter who major medical problems.) Father Family Medical History: Cancer (Father at age of 41 from bone cancer.) Sister(s) Family Medical History: Deep Vein Thrombosis (DVT) (Patient has one sister 74-year-old history of DVT.) General Exam Limitations: no limitations General appearance: alert Head exam: Present: other (right occiptal scalp hematoma) Eye exam: Present: normal appearance, PERRL, EOMI. Absent: scleral icterus, conjunctival injection, periorbital swelling Pupils: Present: other (4 to 2) ENT exam: Present: other (Epistaxis bilaterally. Right hemotympanums) Neck exam: Present: normal inspection, other (c-collar). Absent: tenderness, meningismus, lymphadenopathy Respiratory exam: Present: normal lung sounds bilaterally, chest wall tenderness (crepitance right chest wall). Absent: respiratory distress, wheezes, rales, rhonchi, stridor Cardiovascular Exam: Present: regular rate, normal rhythm, normal heart sounds. Absent: systolic murmur, diastolic murmur, rubs, gallop, clicks GI/Abdominal exam: Present: soft, normal bowel sounds. Absent: distended, tenderness, guarding, rebound, rigid Extremities exam: Present: tenderness (to the right shoulder) Back exam: Present: normal inspection Neurological exam: Present: alert Psychiatric exam: Present: normal affect Skin exam: Present: warm, dry, intact, normal color. Absent: rash Medical Decision Making - Medical Decision Making Was pt. sent in by a medical professional or institution (, PA, DIESEL POWER SHOVEL OPERATOR, urgent care, hospital, or care home...) When possible be specific @ -No Did you speak to anyone other than the patient for history (EMS, parent, family, police, friend...)? What history was obtained from this source @ -EMS and granddaughter Did you review nursing and triage notes (agree or disagree)? Why? @ -I reviewed and agree with nursing and triage notes Were old charts reviewed (outside hosp., previous admission, EMS record, old EKG, old radiological studies, urgent care reports/EKG's, care home records)? Report findings @ -No old charts were reviewed Differential Diagnosis (chest pain, altered mental status, abdominal pain women, abdominal pain men, vaginal bleeding, weakness, fever, dyspnea, syncope, headache, dizziness, GI bleed, back pain, seizure, CVA, palpatations, mental health, musculoskeletal)? @ -Subarachnoid, subdural, skull fracture EKG interpreted by me (3pts min.). @ -Yes and demonstrates sinus rhythm with a rate of 80. [place] interval 167. QRS 85. QTc of 400. No acute ST segment elevations or depressions X-rays interpreted by me (1pt min.). @ -Yes and demonstrates right-sided rib fractures and clavicle fracture CT interpreted by me (1pt min.). @ -Yes and demonstrates intracranial hemorrhage - right sided SAH/ SDH with right sided skull fx. CT chest demonstrates multiple right-sided rib fractures and right clavicle fracture U/S interpreted by me (1pt. min.). @ -None done What testing was considered but not performed or refused? (CT, X-rays, U/S, labs)? Why? @ -None What meds were considered but not given or refused? Why? @ -None Did you discuss the management of the patient with other professionals (professionals i.e. , PA, DIESEL POWER SHOVEL OPERATOR, lab, RT, psych nurse, nursing home social worker, security team lead, teacher, correctional officer captain, case consultant)? Give summary @ -Dr. Pham is present in the ED Was smoking cessation discussed for >3mins.? @ -No Was critical care preformed (if so, how long)? @ -yes, 40 minutes for trauma 1 activation Were there social determinants of health that impacted care today? How? (Homelessness, low income, unemployed, alcoholism, drug addiction, tra nsportation, low edu. Level, literacy, decrease access to med. care, detention, rehab)? @ -No Was there de-escalation of care discussed even if they declined (Discuss DNR or withdrawal of care, Hospice)? DNR status @ -No What co-morbidities impacted this encounter? (DM, HTN, Smoking, COPD, CAD, Cancer, CVA, ARF, Chemo, Hep., AIDS, mental health diagnosis, sleep apnea, morbid obesity)? @ -coronary disease Was patient admitted / discharged? Hospital course, mention meds given and route, prescriptions, significant lab abnormalities, going to OR and other pertinent info. @ -Upon arrival patient seen and evaluated in trauma 1. Patient placed on continuous pulse ox and cardiac monitoring. Airway is intact. Patient has bilateral breath sounds. He has 2+ upper and lower extremity pulses. Disab ility is assessed and GCS is 14. Patient does have right hemotympanums and right-sided occipital hematoma. Crepitance right chest wall. IV is established. Patient is given 50 mics of fentanyl. Portable chest and pelvic x-rays performed. Patient is stable for transport to CT. CT brain, cervical spine, chest abdomen pelvis performed. Patient has a visible intracranial hemorrhage on the left with skull fracture on the right. Patient is given a gram of Ancef, updated tetanus and a pack of platelets. Dr. Pham is present in the ED and evaluates the patient. I called and spoke with Dr. Eng who was agreeable to transfer to [facility] due to intracranial injury Undiagnosed new problem with uncertain prognosis? @ -No Drug Therapy requiring intensive monitoring for toxicity (Heparin, Nitro, Insulin, Cardizem)? @ -No Were any procedures done? @ -No Diagnosis/symptom? @ -Acute fall from height, blunt head injury, right hemotympanum, left subarachnoid hemorrhage, right sided skull fracture, multiple right-sided rib fractures, right clavicular fracture Acute, or Chronic, or Acute on Chronic? @ -Acute Uncomplicated (without systemic symptoms) or Complicated (systemic symptoms)? @ -Complicated Side effects of treatment? @ -No Exacerbation, Progression, or Severe Exacerbation? @ -No Poses a threat to life or bodily function? How? (Chest pain, [place], [place], pneumonia, PE, COPD, DKA, ARF, appy, cholecystitis, CVA, Diverticulitis, Homicidal, Suicidal, threat to staff... and all critical care pts) @ -Yes as patient has intracranial bleeding, skull fracture, multiple rib fr actures - Lab Data Result diagrams: 06/16/24 19:20 06/16/24 19:20 Lab Results 06/16/24 06/16/24 06/16/24 Range/Units 19:20 19:20 19:20 WBC 6.1 (3.8-10.6) k/uL RBC 4.41 (4.30-5.90) m/uL Hgb 13.9 (13.0-17.5) gm/dL Hct 41.1 (39.0-53.0) % MCV 93.2 (80.0-100.0) fL MCH 31.6 (25.0-35.0) pg MCHC 33.9 (31.0-37.0) g/dL RDW 12.5 (11.5-15.5) % Plt Count 309 (150-450) k/uL MPV 7.1 Neutrophils % 60 % Lymphocytes % 23 % Monocytes % 8 % Eosinophils % 5 % Basophils % 0 % Neutrophils # 3.7 (1.3-7.7) k/uL Lymphocytes # 1.4 (1.0-4.8) k/uL Monocytes # 0.5 (0-1.0) k/uL Eosinophils # 0.3 (0-0.7) k/uL Basophils # 0.0 (0-0.2) k/uL PT 10.6 (10.0-12.5) sec INR 1.0 (<1.2) APTT 20.9 L (22.0-30.0) sec Sodium 136 L (137-145) mmol/L Potassium 4.5 (3.5-5.1) mmol/L Chloride 106 (98-107) mmol/L Carbon Dioxide 24 (22-30) mmol/L Anion Gap 6 mmol/L BUN 17 (9-20) mg/dL Creatinine 0.98 (0.66-1.25) mg/dL Est GFR (CKD-EPI)AfAm 88 (>60 ml/min/1.73 sqM) Est GFR (CKD-EPI)NonAf 76 (>60 ml/min/1.73 sqM) Glucose 124 H (74-99) mg/dL Calcium 8.7 (8.4-10.2) mg/dL Total Bilirubin 0.8 (0.2-1.3) mg/dL AST 43 (17-59) U/L ALT 36 (4-49) U/L Alkaline Phosphatase 106 (38-126) U/L Troponin I (0.000-0.034) ng/mL Total Protein 5.8 L (6.3-8.2) g/dL Albumin 3.7 (3.5-5.0) g/dL Urine Opiates Screen (NotDetected) Ur Oxycodone Screen (NotDetected) Urine Methadone Screen (NotDetected) Ur Barbiturates Screen (NotDetected) U Tricyclic Antidepress (NotDetected) Ur Phencyclidine Scrn (NotDetected) Ur Amphetamines Screen (NotDetected) U Methamphetamines Scrn (NotDetected) U Benzodiazepines Scrn (NotDetected) Urine Cocaine Screen (NotDetected) U Marijuana (THC) Screen (NotDetected) Serum Alcohol <10 mg/dL Blood Type Blood Type Recheck Bld Type Recheck Status Antibody Screen Transfuse Platelets Spec Expiration Date 06/16/24 06/16/24 06/16/24 Range/Units 19:20 19:20 20:01 WBC (3.8-10.6) k/uL RBC (4.30-5.90) m/uL Hgb (13.0-17.5) gm/dL Hct (39.0-53.0) % MCV (80.0-100.0) fL MCH (25.0-35.0) pg MCHC (31.0-37.0) g/dL RDW (11.5-15.5) % Plt Count (150-450) k/uL MPV Neutrophils % % Lymphocytes % % Monocytes % % Eosinophils % % Basophils % % Neutrophils # (1.3-7.7) k/uL Lymphocytes # (1.0-4.8) k/uL Monocytes # (0-1.0) k/uL Eosinophils # (0-0.7) k/uL Basophils # (0-0.2) k/uL PT (10.0-12.5) sec INR (<1.2) APTT (22.0-30.0) sec Sodium (137-145) mmol/L Potassium (3.5-5.1) mmol/L Chloride (98-107) mmol/L Carbon Dioxide (22-30) mmol/L Anion Gap mmol/L BUN (9-20) mg/dL Creatinine (0.66-1.25) mg/dL Est GFR (CKD-EPI)AfAm (>60 ml/min/1.73 sqM) Est GFR (CKD-EPI)NonAf (>60 ml/min/1.73 sqM) Glucose (74-99) mg/dL Calcium (8.4-10.2) mg/dL Total Bilirubin (0.2-1.3) mg/dL AST (17-59) U/L ALT (4-49) U/L Alkaline Phosphatase (38-126) U/L Troponin I <0.012 (0.000-0.034) ng/mL Total Protein (6.3-8.2) g/dL Albumin (3.5-5.0) g/dL Urine Opiates Screen (NotDetected) Ur Oxycodone Screen (NotDetected) Urine Methadone Screen (NotDetected) Ur Barbiturates Screen (NotDetected) U Tricyclic Antidepress (NotDetected) Ur Phencyclidine Scrn (NotDetected) Ur Amphetamines Screen (NotDetected) U Methamphetamines Scrn (NotDetected) U Benzodiazepines Scrn (NotDetected) Urine Cocaine Screen (NotDetected) U Marijuana (THC) Screen (NotDetected) Serum Alcohol mg/dL Blood Type B Positive Blood Type Recheck B Pos Bld Type Recheck Status No Antibody Screen NEGATIVE Transfuse Platelets 06/16/2024 Spec Expiration Date 06/19/2024231906/16/24 Range/Units 20:07 WBC (3.8-10.6) k/uL RBC (4.30-5.90) m/uL Hgb (13.0-17.5) gm/dL Hct (39.0-53.0) % MCV (80.0-100.0) fL MCH (25.0-35.0) pg MCHC (31.0-37.0) g/dL RDW (11.5-15.5) % Plt Count (150-450) k/uL MPV Neutrophils % % Lymphocytes % % Monocytes % % Eosinophils % % Basophils % % Neutrophils # (1.3-7.7) k/uL Lymphocytes # (1.0-4.8) k/uL Monocytes # (0-1.0) k/uL Eosinophils # (0-0.7) k/uL Basophils # (0-0.2) k/uL PT (10.0-12.5) sec INR (<1.2) APTT (22.0-30.0) sec Sodium (137-145) mmol/L Potassium (3.5-5.1) mmol/L Chloride (98-107) mmol/L Carbon Dioxide (22-30) mmol/L Anion Gap mmol/L BUN (9-20) mg/dL Creatinine (0.66-1.25) mg/dL Est GFR (CKD-EPI)AfAm (>60 ml/min/1.73 sqM) Est GFR (CKD-EPI)NonAf (>60 ml/min/1.73 sqM) Glucose (74-99) mg/dL Calcium (8.4-10.2) mg/dL Total Bilirubin (0.2-1.3) mg/dL AST (17-59) U/L ALT (4-49) U/L Alkaline Phosphatase (38-126) U/L Troponin I (0.000-0.034) ng/mL Total Protein (6.3-8.2) g/dL Albumin (3.5-5.0) g/dL Urine Opiates Screen Not Detected (NotDetected) Ur Oxycodone Screen Not Detected (NotDetected) Urine Methadone Screen Not Detected (NotDetected) Ur Barbiturates Screen Not Detected (NotDetected) U Tricyclic Antidepress Not Detected (NotDetected) Ur Phencyclidine Scrn Not Detected (NotDetected) Ur Amphetamines Screen Not Detected (NotDetected) U Methamphetamines Scrn Not Detected (NotDetected) U Benzodiazepines Scrn Not Detected (NotDetected) Urine Cocaine Screen Not Detected (NotDetected) U Marijuana (THC) Screen Not Detected (NotDetected) Serum Alcohol mg/dL Blood Type Blood Type Recheck Bld Type Recheck Status Antibody Screen Transfuse Platelets Spec Expiration Date Disposition Clinical Impression: Fall, Subarachnoid hematoma, Skull fracture, Clavicle fracture, Rib fractures Disposition: OTHER INSTITUTION NOT DEFINED Condition: Serious Is patient prescribed a controlled substance at d/c from ED?: No Referrals: Ema Watkins MD [Primary Care Provider] - 1-2 days Time of Disposition: 20:01 - Out of Hospital Transfer - Req. Specs Out of Hospital Transfer - Requested Specifics: [facility]
[2024-06-16 20:09] LABS: Partial Thromboplastin Time 20.9 sec (22.0-30.0)
[2024-06-16 20:28] LABS: Amphetamine Screen,Urine Not Detected (NotDetected); Barbiturate Screen,Urine Not Detected (NotDetected); Benzodiazepines Screen,Urine Not Detected (NotDetected); Cocaine Screen,Urine Not Detected (NotDetected); Methadone Screen, Urine Not Detected (NotDetected); Opiate Screen,Urine Not Detected (NotDetected); Oxycodone Screen, Urine Not Detected (NotDetected); Phencyclidine Screen,Urine Not Detected (NotDetected); Tricyclic Antidepressant,Urine Not Detected (NotDetected); Urn Cannabinoid Scrn Not Detected (NotDetected)
--- NOTE | 2024-06-16 20:29 | P.GSCN ---
History of Present Illness Consult date: 06/16/24 Reason for Consult: Fall with head injury History of present illness: 74-year-old male comes to the hospital as a priority 1 trauma after falling from his boat. He was found outside the home by his family member. Patient has been mildly confused since the incident. Seems to be having an improvement in his appropriateness with questioning. Complaining of right shoulder pain and right- sided chest pain. No shortness of breath. EMS described possible skull fracture on their examination. Since arrival patient had plain films of the shira st and pelvis. Chest plain film shows fractures of the clavicle and ribs. No obvious abnormalities on pelvis x-ray. Patient then went for CT of brain chest C-spine abdomen pelvis. Official results are pending from radiology. I believe ER physician spoke with radiology regarding findings of intracranial hemorrhage and skull fracture. Patient has loss of volume on the right chest with multiple rib fractures. Small hemothorax suspected, no sizable pneumothorax, no acute intra-abdominal injury identified on prelim exam. Review of Systems ROS unobtainable: due to mental status Past Medical History Past Medical History: Coronary Artery Disease (CAD), GERD/Reflux, Hyperlipidemia, Hypertension, Osteoarthritis (OA), Prostate Disorder Additional Past Medical History / Comment(s): arthritis, hiatal hernia, BPH History of Any Multi-Drug Resistant Organisms: None Reported Past Surgical History: Appendectomy, Cholecystectomy, Heart Catheterization With Stent, Orthopedic Surgery Additional Past Surgical History / Comment(s): ORIF jame ankles, "aneurysm behind knee" Past Anesthesia/Blood Transfusion Reactions: No Reported Reaction Date of Last Stent Placement:: 2008 Past Psychological History: No Psychological Hx Reported Past Alcohol Use History: Occasional Past Drug Use History: None Reported - Past Family History Mother Family Medical History: Coronary Artery Disease (CAD) (Mother at age of 94 from CAD.) Brother(s) Family Medical History: Cancer, Coronary Artery Disease (CAD) (Patient had 3 brothers one of them with CAD post PCI and the other one has hypertension.) Son(s) Family Medical History: Thyroid Disorder (Patient has one son with thyroid disea se .) Daughter(s) Family Medical History: No Reported History (Patient has one daughter who major medical problems.) Father Family Medical History: Cancer (Father at age of 41 from bone cancer.) Sister(s) Family Medical History: Deep Vein Thrombosis (DVT) (Patient has one sister 74-year-old history of DVT.) Medications and Allergies Home Medications Medication Instructions Recorded Confirmed Type Aspirin EC [Ecotrin Low Dose] 162 mg PO DAILY 08/05/19 08/05/19 History Atorvastatin [Lipitor] 80 mg PO DAILY 08/05/19 08/07/19 History Cholecalciferol [Vitamin D3 (25 1,000 unit PO DAILY 08/05/19 08/05/19 History Mcg = 1000 Iu)] Cyanocobalamin (Vitamin B-12) 1,000 mcg PO DAILY 08/05/19 08/05/19 History [Vitamin B-12] DULoxetine HCL [Cymbalta] 60 mg PO BID 08/05/19 08/05/19 History Famotidine [Pepcid] 20 mg PO BID PRN 08/05/19 08/05/19 History HYDROcodone/APAP 7.5-325MG [[place] 1 tab PO TID PRN 08/05/19 08/05/19 History 7.5-325] Lisinopril-Hctz 20-12.5 mg 1 tab PO DAILY 08/05/19 08/05/19 History [Zestoretic 20-12.5] Omeprazole 20 mg PO DAILY 08/05/19 08/05/19 History Tamsulosin HCl [Flomax] 0.8 mg PO DAILY 08/05/19 08/05/19 History Atorvastatin [Lipitor] 80 mg PO DAILY 30 Days #30 tab 08/07/19 Rx Clopidogrel [Plavix] 08/07/19 History Clopidogrel [Plavix] 75 mg PO DAILY 08/07/19 08/07/19 History Clopidogrel [Plavix] 75 mg PO DAILY 30 Days #30 tablet 08/07/19 Rx Metoprolol Tartrate [Lopressor] 25 mg PO BID 08/07/19 08/07/19 History Metoprolol Tartrate [Lopressor] 25 mg PO BID 30 Days #60 tablet 08/07/19 Rx Allergies Allergy/AdvReac Type Severity Reaction Status Date / Time aspirin Allergy Nausea Verified 06/16/24 19:32 WITH UNCOATED TABLETS ONLY Surgical - Exam Physical exam: General: Well-developed, well-nourished, GCS 14 HEENT: Bruising right occiput, right hemotympanums per ER, pupils reactive and equal sized, no extraocular movement abnormalities noted Chest: Right clavicular tenderness and crepitus, right-sided chest tenderness, equal breath sounds Abdomen: Nontender, nondistended Extremities: No edema Neuro: Alert and oriented, GCS 14 Results - Labs 06/16/24 19:20 06/16/24 19:20 Abnormal Lab Results - Last 24 Hours (Table) 06/16/24 06/16/24 Range/Units 19:20 19:20 APTT 20.9 L (22.0-30.0) sec Sodium 136 L (137-145) mmol/L Glucose 124 H (74-99) mg/dL Total Protein 5.8 L (6.3-8.2) g/dL Diabetes panel 06/16/24 Range/Units 19:20 Sodium 136 L (137-145) mmol/L Potassium 4.5 (3.5-5.1) mmol/L Chloride 106 (98-107) mmol/L Carbon Dioxide 24 (22-30) mmol/L BUN 17 (9-20) mg/dL Creatinine 0.98 (0.66-1.25) mg/dL Glucose 124 H (74-99) mg/dL Calcium 8.7 (8.4-10.2) mg/dL AST 43 (17-59) U/L ALT 36 (4-49) U/L Alkaline Phosphatase 106 (38-126) U/L Total Protein 5.8 L (6.3-8.2) g/dL Albumin 3.7 (3.5-5.0) g/dL Calcium panel 06/16/24 Range/Units 19:20 Calcium 8.7 (8.4-10.2) mg/dL Albumin 3.7 (3.5-5.0) g/dL Pituitary panel 06/16/24 Range/Units 19:20 Sodium 136 L (137-145) mmol/L Potassium 4.5 (3.5-5.1) mmol/L Chloride 106 (98-107) mmol/L Carbon Dioxide 24 (22-30) mmol/L BUN 17 (9-20) mg/dL Creatinine 0.98 (0.66-1.25) mg/dL Glucose 124 H (74-99) mg/dL Calcium 8.7 (8.4-10.2) mg/dL Adrenal panel 06/16/24 Range/Units 19:20 Sodium 136 L (137-145) mmol/L Potassium 4.5 (3.5-5.1) mmol/L Chloride 106 (98-107) mmol/L Carbon Dioxide 24 (22-30) mmol/L BUN 17 (9-20) mg/dL Creatinine 0.98 (0.66-1.25) mg/dL Glucose 124 H (74-99) mg/dL Calcium 8.7 (8.4-10.2) mg/dL Total Bilirubin 0.8 (0.2-1.3) mg/dL AST 43 (17-59) U/L ALT 36 (4-49) U/L Alkaline Phosphatase 106 (38-126) U/L Total Protein 5.8 L (6.3-8.2) g/dL Albumin 3.7 (3.5-5.0) g/dL Assessment and Plan (1) Subarachnoid hematoma Narrative/Plan: 74-year-old male status post fall with intracranial bleed, possible skull fracture, rib fractures, clavicular fracture. Patient on Plavix at home. Given 1 unit of platelets. Omalley catheter being placed. Plans for transfer to [facility] for higher level of care. Current Visit: Yes Status: Acute Code(s): S06.6XAA - TRAUM SUBRAC HEM WITH LOC STATUS UNKNOWN, INITIAL ENCOUNTER SNOMED Code(s): 192465426
--- NOTE | 2024-06-16 20:38 | XR ---
EXAMINATION TYPE: XR pelvis AP view DATE OF EXAM: 06/16/2024 7:49 PM CLINICAL INDICATION:Male, 74 years old with history of Trauma; [facility] COMPARISON: None TECHNIQUE: The pelvis was examined in a single projection. FINDINGS: There is no evidence of fracture or dislocation. Mild/moderate bilateral hip arthropathy and degenera tive changes of the lower lumbar spine. There is no soft tissue abnormality seen. No abnormal calcif ications are present. Excreted contrast in the renal collecting systems and bladder noted. IMPRESSION: No acute fracture or dislocation identified, on this single view of the pelvis.
--- NOTE | 2024-06-16 20:45 | XR ---
EXAM: XR chest 1V portable CLINICAL INDICATION:Male, 74 years old with history of trauma; [facility] COMPARISON: 08/05/2019 TECHNIQUE: Chest single view. FINDINGS: EKG leads overlie the chest. No indwelling lines are seen. Lung volumes are diminished, with crowding of lung markings and minor bibasilar opacities likely on t he basis of atelectasis. This also exaggerates the apparent heart size. No visualized consolidation, sizable effusion, or pneumothorax. Left costophrenic angle is however partially excluded from the fie ld-of-view. Heart appears borderline mildly enlarged. Unremarkable mediastinal contours. Trachea appears patent a nd nondisplaced. There are multiple right upper rib fractures including the lateral third, fourth, fifth, sixth ribs, with mild/moderate displacement. Subtle seventh and eighth rib fractures are better seen on CT. Acute comminuted fracture through the mid right clavicle with mild displacement. Mild degenerative changes shoulders and spine. IMPRESSION: 1. Multiple right upper rib and right clavicle fractures. 2. Decreased lung volumes, without evidence of significant consolidative process or pneumothorax.
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
== END 2024-06-16 20:37 | disposition other institution (70) ==
LOC: EC 19:17
DX: S06.6XAA Traumatic subarachnoid hemorrhage with loss of consciousness status unknown, initial encounter (principal); S22.41XA Multiple fractures of ribs, right side, initial encounter for closed fracture; S49.91XA Unspecified injury of right shoulder and upper arm, initial encounter; Z88.6 Allergy status to analgesic agent; Z23 Encounter for immunization; W19.XXXA Unspecified fall, initial encounter
CPT/HCPCS: 36415; 93005; 86900; 86901; 80053; 84484; 85025; 85610; 85730; 86850; 80306; 72170; 71045; 72125; 70450; 71260; 74177; 90715; 99291; 96365; 96368; 96375; 96376; 90471; L0120; G0390; G0480; J0690; J3010; Q9967; 80320

== ENCOUNTER → 2025-03-31 | Outpatient (CLI) | payer MEDICARE ==
[2025-03-31 16:09] LABS: African American GFR (CKD) >90 (>60 ml/min/1.73 sqM); Blood Urea Nitrogen 14 mg/dL (9-20); Non-African American GFR(CKD) 86 (>60 ml/min/1.73 sqM)
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
== END | disposition home or self-care (01) ==
LOC: RADCTMAIN 15:12
PROVIDERS: ATTEND Family Medicine
DX: S06.5X1S Traumatic subdural hemorrhage with loss of consciousness of 30 minutes or less, sequela (principal); G93.89 Other specified disorders of brain; Z86.79 Personal history of other diseases of the circulatory system
CPT/HCPCS: 82565; 84520; 70470; 36415; Q9967